=== PATIENT | female | born 1975 | race Caucasian/White ===

== ENCOUNTER 2018-04-18 20:01 | Emergency (ER) | payer BC ==
[2018-04-18 20:31] VITALS: BP 133/88; PULSE 85; RESP 18; TEMP 98.7
[2018-04-18] MEDS ORDERED: SODIUM CHLORIDE 0.9% 1,000 ML BAG ONE (23:00)
[2018-04-18 23:35] LABS: Basophils % (A) 1 %; Eosinophils # (A) 0.3 k/uL (0-0.7); Eosinophils % (A) 4 %; HCT 42.4 % (34.0-46.0); HGB 13.9 gm/dL (11.4-16.0); Lymphocytes # (A) 2.4 k/uL (1.0-4.8); Lymphocytes % (A) 34 %; MCH 28.4 pg (25.0-35.0); MCHC 32.9 g/dL (31.0-37.0); MCV 86.3 fL (80.0-100.0); Mean Platelet Volume 6.7; Monocytes # (A) 0.4 k/uL (0-1.0); Monocytes % (A) 6 %; Neutrophils # (A) 3.8 k/uL (1.3-7.7); Neutrophils % (A) 53 %; Platelet Count 274 k/uL (150-450); RBC 4.91 m/uL (3.80-5.40); RDW 13.3 % (11.5-15.5); WBC 7.1 k/uL (3.8-10.6)
--- NOTE | 2018-04-18 23:39 | CT ---
EXAMINATION TYPE: CT abdomen pelvis wo con DATE OF EXAM: 04/18/2018 COMPARISON: 01/11/2013 HISTORY: left flank pain CT DLP: 1228.4 mGycm Automated exposure control for dose reduction was used. TECHNIQUE: Helical acquisition of images was performed from the lung bases through the pelvis. FINDINGS: Lung bases are clear. There is no pleural effusion. Heart size is normal. There is no pericardial eff usion. There are surgical clips along the stomach from bariatric surgery. There is small hiatal herni a. Spleen appears normal. There is accessory spleen noted. There is no evidence of pancreatic mass. G allbladder appears normal. Liver shows no focal defect. Bile ducts are not dilated. There is no adrenal mass. Kidneys have normal size and contour. There is no hydronephrosis. There is ventral hernia that contains omental fat. This measures 4.5 x 3 cm. There is no retroperitoneal adenopathy. Ureters are not dilated. Bladder distends smoothly. There is no evidence of a pelvic mass. There is no inguinal hernia. I see no intestinal wall thickening. There are no dilated loops. Appendix is not definitely seen. There is no sign of a thickened appendix. The re is no evidence of free air. The bony structures are intact. There is no compression fracture. Bony pelvis is intact. There is no mesenteric edema or adenopathy. IMPRESSION: PREVIOUS SURGERY. NO EVIDENCE OF RENAL STONE OR OBSTRUCTION. NO SIGN OF ACUTE ABDOMEN AND PELVIS. THE RE IS VENTRAL HERNIA ABOVE THE UMBILICUS THAT CONTAINS OMENTAL FAT. THERE IS CLEARING OF THE LEFT-NATE ED HYDRONEPHROSIS AND RENAL CALCULUS COMPARED TO OLD EXAM. VENTRAL HERNIA IS INCREASED COMPARED TO OL D EXAM.
[2018-04-18 23:44] LABS: ALT 37 U/L (9-52); AST 30 U/L (14-36); Albumin 4.3 g/dL (3.5-5.0); Alkaline Phosphatase 101 U/L (38-126); Anion Gap 11 mmol/L; Blood Urea Nitrogen 21 mg/dL (7-17); Calcium 9.5 mg/dL (8.4-10.2); Carbon Dioxide 24 mmol/L (22-30); Chloride 104 mmol/L (98-107); Glucose 85 mg/dL (74-99); Lipase 109 U/L (23-300); Magnesium 1.8 mg/dL (1.6-2.3); Phosphorus 5.1 mg/dL (2.5-4.5); Potassium 4.6 mmol/L (3.5-5.1); Sodium 139 mmol/L (137-145); Total Bilirubin 0.2 mg/dL (0.2-1.3); Total Protein 7.4 g/dL (6.3-8.2)
[2018-04-19 00:46] LABS: Appearance,Urine Clear (Clear); Bacteria,Urine Moderate /hpf; Bilirubin,Urine Negative (Negative); Blood,Urine Negative (Negative); Color,Urine Yellow; Glucose,Urine (UA) Negative (Negative); Ketones,Urine Negative (Negative); Leukocyte Esterase,Urine Small (Negative); Mucus,Urine Rare /hpf; Nitrite,Urine Positive (Negative); PH, Urine 5.5 (5.0-8.0); Protein,Urine Negative (Negative); RBC,Urine 1 /hpf (0-5); Specific Gravity,Urine 1.018 (1.001-1.035); Squamous Epithelial Cell,Urine 3 /hpf (0-4); Urobilinogen,Urine <2.0 mg/dL (<2.0); WBC,Urine 6 /hpf (0-5)
== END 2018-04-19 01:35 | disposition home or self-care (01) ==
LOC: EC 20:01
DX: R10.9 Unspecified abdominal pain (principal)
CPT/HCPCS: 36415; 74176; 80053; 81001; 83690; 83735; 84100; 85025; 87077; 87086; 87186; 96361; 96372; 96374; 99284

== ENCOUNTER 2018-05-28 09:08 | Emergency (ER) | payer BC ==
[2018-05-28 09:12] VITALS: BP 129/83; RESP 18; TEMP 98.8
[2018-05-28] MEDS ORDERED: IPRATROPIUM-ALBUTEROL 3 ML NEB INHALATION STA (09:18)
--- NOTE | 2018-05-28 09:20 | ED ---
URI HPI - General Chief Complaint: Upper Respiratory Infection Stated Complaint: Cough/sob Time Seen by Provider: 05/28/18 09:14 Source: patient, RN notes reviewed Mode of arrival: ambulatory Limitations: no limitations - History of Present Illness Initial Comments: 42-year-old female presents emergency Department chief complaint cough congestion for the last 9 days. Patient states it started just in her sinuses but states that she has now productive cough. Patient states she was smoker 18 years ago. Denies any history of asthma or COPD. Denies any current fever but she's had on-and-off fevers throughout her illness. Patient did have multiple sick contacts at home that are now BETTER. She has tried [id number] decongestants that has not been helping. Patient states she has left-sided facial pressure and pain. She also states her ears feel plugged. Patient denies sore throat, difficulty swallowing. - Related Data Previous Rx's Medication Instructions Recorded Albuterol Sulfate [Proair Hfa] 1 - 2 puff INHALATION Q4HR PRN #1 05/28/18 inhaler Amoxicillin/Potassium Clav 1 tab PO Q12HR #20 tab 05/28/18 [Augmentin 875-125 Tablet] predniSONE 50 mg PO DAILY #5 tab 05/28/18 Allergies Allergy/AdvReac Type Severity Reaction Status Date / Time No Known Allergies Allergy Verified 05/28/18 09:27 Review of Systems ROS Statement: Those systems with pertinent positive or pertinent negative responses have been documented in the HPI. ROS Other: All systems not noted in ROS Statement are negative. Past Medical History Additional Past Medical History / Comment(s): Kidney stones History of Any Multi-Drug Resistant Organisms: None Reported Past Surgical History: Bariatric Surgery, Hysterectomy Additional Past Surgical History / Comment(s): Gastric sleeve, trigger finger, carpal tunnel Past Psychological History: Depression Smoking Status: Former smoker Past Alcohol Use History: Occasional Past Drug Use History: None Reported General Exam Limitations: no limitations General appearance: alert, in no apparent distress Head exam: Present: atraumatic, normocephalic, normal inspection Eye exam: Present: normal appearance, PERRL, EOMI. Absent: scleral icterus, conjunctival injection, periorbital swelling ENT exam: Present: mucous membranes moist, TM's normal bilaterally, normal external ear exam, other (Left maxillary and frontal sinus tenderness). Absent : normal exam, normal oropharynx (Postnasal drainage) Neck exam: Present: normal inspection, full ROM. Absent: tenderness, meningismus, lymphadenopathy Respiratory exam: Present: wheezes, rhonchi. Absent: normal lung sounds bilaterally, respiratory distress, rales, stridor Cardiovascular Exam: Present: regular rate, normal rhythm, normal heart sounds. Absent: systolic murmur, diastolic murmur, rubs, gallop, clicks Neurological exam: Present: alert, oriented X3, CN II-XII intact Skin exam: Present: warm, dry, intact, normal color. Absent: rash Course Vital Signs 05/28/18 09:09 Temperature 98.8 F Pulse Rate 94 Respiratory 18 Rate Blood Pressure 129/83 O2 Sat by Pulse 99 Oximetry Medical Decision Making - Medical Decision Making 42-year-old female presented for cough and congestion. Patient did have a chest x-ray which shows no acute abnormality. Patient has acute sinusitis/ bronchitis. Will be treated with Augmentin for sinusitis and prednisone for her acute bronchitis. Patient also given pro-air inhaler. She'll follow-up with her PCP return for any worsening symptoms. Disposition Clinical Impression: Bronchitis, Sinusitis Disposition: HOME SELF-CARE Condition: Stable Instructions (If sedation given, give patient instructions): Sinusitis (ED) Additional Instructions: Please return to the Emergency Department if symptoms worsen or any other concerns. Prescriptions: Albuterol Sulfate [Proair Hfa] 1 - 2 puff INHALATION Q4HR PRN #1 inhaler PRN Reason: difficulty in breathing Amoxicillin/Potassium Clav [Augmentin 875-125 Tablet] 1 tab PO Q12HR #20 tab predniSONE 50 mg PO DAILY #5 tab Is patient prescribed a controlled substance at d/c from ED?: No Referrals: None,Stated [Primary Care Provider] - 1-2 days Time of Disposition: 09:33
--- NOTE | 2018-05-28 09:29 | XR ---
EXAMINATION TYPE: XR chest 2V DATE OF EXAM: 05/28/2018 COMPARISON: Chest x-ray November 17, 2010 HISTORY: Cough congestion and fever for 9 days. TECHNIQUE: Frontal and lateral views of the chest are obtained. FINDINGS: There is no focal air space opacity, pleural effusion, or pneumothorax seen. The cardiac silhouette size is within normal limits. The osseous structures are intact. IMPRESSION: No suspicious acute pulmonary process. No significant change from prior.
[2018-05-28 09:59] VITALS: PULSE 84
== END 2018-05-28 10:15 | disposition home or self-care (01) ==
LOC: EC 09:08
DX: J20.9 Acute bronchitis, unspecified (principal); J01.90 Acute sinusitis, unspecified; Z87.891 Personal history of nicotine dependence
CPT/HCPCS: 71046; 99283

== ENCOUNTER 2019-10-12 14:24 | Emergency (ER) | payer BC ==
[2019-10-12 14:34] VITALS: TEMP 97.9
--- NOTE | 2019-10-12 14:43 | ED ---
Abdominal Pain HPI - General Chief Complaint: Abdominal Pain Stated Complaint: Kidney stone Time Seen by Provider: 10/12/19 14:35 Source: patient Mode of arrival: ambulatory Limitations: no limitations - History of Present Illness Initial Comments: Patient is a 43-year-old female with history of kidney stones presenting to emergency Department with a chief complaint of a kidney stone. Patient reports there was not set of left-sided back and flank pain that started early this morning. States the pain is now radiating to the suprapubic region. States this feels like her typical kidney stone. States she did not take any medication to alleviate the symptoms. Denies any urinary or vaginal symptoms. Denies any hematuria, hematochezia or melena. Denies any night sweats or Chills. Denies any chest pain or shortness of breath. - Related Data Previous Rx's Medication Instructions Recorded Albuterol Sulfate [Proair Hfa] 1 - 2 puff INHALATION Q4HR PRN #1 05/28/18 inhaler Amoxicillin/Potassium Clav 1 tab PO Q12HR #20 tab 05/28/18 [Augmentin 875-125 Tablet] predniSONE 50 mg PO DAILY #5 tab 05/28/18 Ondansetron Odt [Zofran Odt] 4 mg PO Q8HR PRN #14 tab 10/12/19 Tamsulosin [Flomax] 0.4 mg PO DAILY #7 cap 10/12/19 Allergies Allergy/AdvReac Type Severity Reaction Status Date / Time sulfamethoxazole AdvReac Nausea & Verified 10/12/19 14:33 [From Bactrim] Vomiting trimethoprim [From Bactrim] AdvReac Nausea & Verified 10/12/19 14:33 Vomiting Review of Systems ROS Statement: Those systems with pertinent positive or pertinent negative responses have been documented in the HPI. ROS Other: All systems not noted in ROS Statement are negative. Past Medical History Additional Past Medical History / Comment(s): Kidney stones, History of Any Multi-Drug Resistant Organisms: None Reported Past Surgical History: Bariatric Surgery, Hysterectomy Additional Past Surgical History / Comment(s): Gastric sleeve, trigger finger, carpal tunnel, lithotripsy, Past Psychological History: Depression Smoking Status: Former smoker Past Alcohol Use History: Daily Past Drug Use History: None Reported General Exam Limitations: no limitations General appearance: alert, in no apparent distress, obese Head exam: Present: atraumatic, normocephalic, normal inspection Eye exam: Present: normal appearance, PERRL, EOMI Pupils: Present: normal accommodation ENT exam: Present: normal exam, normal oropharynx, mucous membranes moist Neck exam: Present: normal inspection, full ROM Respiratory exam: Present: normal lung sounds bilaterally. Absent: respiratory distress, wheezes, rales Cardiovascular Exam: Present: regular rate, normal rhythm, normal heart sounds GI/Abdominal exam: Present: soft. Absent: distended, tenderness, guarding Extremities exam: Present: normal inspection, full ROM Back exam: Present: normal inspection, full ROM, CVA tenderness (L). Absent: muscle spasm Neurological exam: Present: alert, oriented X3 Psychiatric exam: Present: normal affect, normal mood Skin exam: Present: warm, dry, intact, normal color Course Vital Signs 10/12/19 10/12/19 10/12/19 14:30 14:34 16:04 Temperature 97.9 F Pulse Rate 93 85 Respiratory 18 20 20 Rate Blood Pressure 143/88 163/99 O2 Sat by Pulse 99 98 Oximetry Medical Decision Making - Medical Decision Making Patient is a 43-year-old female with history of kidney stones presenting to the emergency department with a chief complaint of a kidney stone. Exam reveals left CVA tenderness. UA shows positive red blood cells and moderate blood in the urine. Patient states this feels exactly like her previous stone. Patient given analgesia and a deep and will be discharged with a Tylenol 3 starter pack. Advised about the possible side effects of medication. She will be discharged with Zofran and Flomax. Advised to follow-up with urologist. On reevaluation patient reports the symptoms improved and feels comfortable going home. Return parameters thoroughly discussed the patient was understanding and agreeable. Case discussed with physician. - Lab Data Lab Results 10/12/19 Range/Units 15:00 Urine Color Yellow Urine Appearance Turbid H (Clear) Urine pH 5.0 (5.0-8.0) Ur Specific [place] 1.022 (1.001-1.035) Urine Protein Negative (Negative) Urine Glucose (UA) Negative (Negative) Urine Ketones Negative (Negative) Urine Blood Moderate H (Negative) Urine Nitrite Negative (Negative) Urine Bilirubin Negative (Negative) Urine Urobilinogen <2.0 (<2.0) mg/dL Ur Leukocyte Esterase Negative (Negative) Urine RBC 33 H (0-5) /hpf Urine WBC 1 (0-5) /hpf Ur Squamous Epith Cells 2 (0-4) /hpf Uric Acid Crystals Many H (None) /hpf Hyaline Casts 1 (0-2) /lpf Urine Mucus Rare H (None) /hpf Disposition Clinical Impression: Renal stone Disposition: HOME SELF-CARE Condition: Stable Instructions (If sedation given, give patient instructions): Kidney Stones (ED) Additional Instructions: Follow-up with urology. Return to emergency department if symptoms worsen. Take prescribed medication as directed. Prescriptions: Tamsulosin [Flomax] 0.4 mg PO DAILY #7 cap Ondansetron Odt [Zofran Odt] 4 mg PO Q8HR PRN #14 tab PRN Reason: Nausea Is patient prescribed a controlled substance at d/c from ED?: No Referrals: Celsa Salcedo MD [Primary Care Provider] - 1-2 days Flaquito Baptiste MD [STAFF PHYSICIAN] - 1-2 days Time of Disposition: 15:29
[2019-10-12] MEDS ORDERED: KETOROLAC 30 MG/ML 1 ML VIAL IVP STA (14:57)
[2019-10-12] MEDS ORDERED: ONDANSETRON 4 MG/2 ML VIAL IVP STA (14:57)
[2019-10-12 15:16] LABS: Appearance,Urine Turbid (Clear); Bilirubin,Urine Negative (Negative); Blood,Urine Moderate (Negative); Color,Urine Yellow; Glucose,Urine (UA) Negative (Negative); Hyaline Casts,Urine 1 /lpf (0-2); Ketones,Urine Negative (Negative); Leukocyte Esterase,Urine Negative (Negative); Mucus,Urine Rare /hpf; Nitrite,Urine Negative (Negative); Protein,Urine Negative (Negative); RBC,Urine 33 /hpf (0-5); Specific Gravity,Urine 1.022 (1.001-1.035); Squamous Epithelial Cell,Urine 2 /hpf (0-4); Uric Acid Crystals,Urine Many /hpf; Urobilinogen,Urine <2.0 mg/dL (<2.0); WBC,Urine 1 /hpf (0-5)
[2019-10-12] MEDS ORDERED: ACET/COD 300 MG/30 MG STARTER PACK 6 TAB BTL PO STA (15:18)
[2019-10-12 15:52] VITALS: RESP 20
--- NOTE | 2019-10-12 15:54 | XR ---
EXAMINATION TYPE: XR KUB DATE OF EXAM: 10/12/2019 COMPARISON: 01/11/2013 INDICATION: Renal stone left flank pain TECHNIQUE: Single view abdomen FINDINGS: There is a normal bowel gas pattern. Psoas margins are normal. No organomegaly is present. Gastric surgery surgical clips are evident. No left renal or ureteral stone is identified. IMPRESSION: 1. Unremarkable Abdomen
[2019-10-12] MEDS ORDERED: MORPHINE SULFATE 4 MG/ML SYRINGE IVP STA (15:56)
[2019-10-12 16:06] VITALS: BP 163/99; PULSE 85
== END 2019-10-12 16:08 | disposition home or self-care (01) ==
LOC: EC 14:24
DX: N20.0 Calculus of kidney (principal); Z87.891 Personal history of nicotine dependence; Z88.2 Allergy status to sulfonamides; Z88.1 Allergy status to other antibiotic agents; Z98.890 Other specified postprocedural states; Z98.84 Bariatric surgery status
CPT/HCPCS: 81001; 74018; 99284; 96374; 96375 ×2; J2270; J2405; J1885

== ENCOUNTER → 2019-10-14 | Outpatient (CLI) | payer BC ==
--- NOTE | 2019-10-14 11:18 | CT ---
EXAMINATION TYPE: CT abdomen pelvis wo con DATE OF EXAM: 10/14/2019 COMPARISON: 04/18/2018 HISTORY: Calculus of ureter CT DLP: 1166 mGycm Automated exposure control for dose reduction was used. TECHNIQUE: Helical acquisition of images was performed from the lung bases through the pelvis. FINDINGS: LUNG BASES: No significant abnormality is appreciated. LIVER/GB: No significant abnormality is appreciated. PANCREAS: No significant abnormality is seen. SPLEEN: Accessory spleen noted.. ADRENALS: No significant abnormality is seen. KIDNEYS: Left kidney: There is moderate left hydronephrosis. There are at least 5 less than 5 mm lower pole le ft renal calculi. There is a 3 mm in diameter distal left ureteral calculus at the level of the SI janine int.. ADENOPATHY: None visualized. OSSEOUS STRUCTURES: Hypertrophic and degenerative changes spine. BOWEL: Bowel gas pattern nonspecific. There is evidence of previous gastric surgery.. OTHER: There is a ventral hernia containing peritoneal. Uterus not seen correlate for previous surger y. IMPRESSION: 1. Moderate left hydronephrosis with nephrolithiasis and obstructing 3 mm in diameter left mid to dis arvind ureteral stone. 2. Stable anterior abdominal wall fat-containing hernia.
== END | disposition home or self-care (01) ==
LOC: RADCTMAIN 10:18
PROVIDERS: ATTEND Urology
DX: N13.2 Hydronephrosis with renal and ureteral calculous obstruction (principal); K46.9 Unspecified abdominal hernia without obstruction or gangrene
CPT/HCPCS: 74176

== ENCOUNTER → 2020-08-19 | Outpatient (CLI) | payer BC ==
--- NOTE | 2020-08-19 09:40 | MM ---
Reason for exam: screening (asymptomatic). Baseline mammogram. History: Patient is postmenopausal. Family history of breast cancer in maternal aunt at age 60. Took hormonal contraceptives for 4 years. Physical Findings: Nurse did not find any significant physical abnormalities on exam. MG Screening Mammo w CAD Bilateral CC, MLO, and XCCL view(s) were taken. CV view(s) were taken of the right breast. There are scattered fibroglandular densities. There is no discrete abnormality. These results were verbally communicated with the patient and result sheet given to the patient on 08/19/20. ASSESSMENT: Negative, BI-RAD 1 RECOMMENDATION: Routine screening mammogram of both breasts in 1 year.
== END | disposition home or self-care (01) ==
LOC: RADMAMWWP 08:04
PROVIDERS: ATTEND Family Medicine
DX: Z12.31 Encounter for screening mammogram for malignant neoplasm of breast (principal); Z80.3 Family history of malignant neoplasm of breast
CPT/HCPCS: 77067

== ENCOUNTER 2021-01-11 06:48 | Inpatient (IN) | payer BC ==
[2021-01-11] MEDS ORDERED: IBUPROFEN 600 MG TAB PO STA (07:12)
[2021-01-11] MEDS ORDERED: ACETAMINOPHEN TAB 500 MG TAB PO STA (07:12)
[2021-01-11] MEDS ORDERED: ONDANSETRON 4 MG/2 ML VIAL IVP STA (07:13)
[2021-01-11] MEDS ORDERED: MORPHINE SULFATE 4 MG/ML SYRINGE IVP STA (07:13)
[2021-01-11] MEDS ORDERED: SODIUM CHLORIDE 0.9% 2,000 ML IV STA (07:13)
--- NOTE | 2021-01-11 07:18 | ED ---
General Adult HPI - General Chief complaint: Abdominal Pain Stated complaint: Abd Pain Time Seen by Provider: 01/11/21 06:56 Source: patient Mode of arrival: ambulatory Limitations: no limitations - History of Present Illness Initial comments: 45-year-old female with a past medical history of gastric sleeve, kidney stones, pyelonephritis, hernia [address] Adan Wesley to the emergency room for left sided abdominal and flank pain. Patient states this started after her surgery about worsened significantly last night. Patient states she feels she developed a fever last night and had chills. On repeat temperature here she is 101.4. Patient states it feels like a kidney stone that she has had in the past. States she has had infections on top of systems the past. Patient reports she has nausea as well. Patient denies cough congestion sore throat.Patient has no other complaints at this time including shortness of breath, chest pain, vomiting, headache, or visual changes. - Related Data Home Medications Medication Instructions Recorded Confirmed Naproxen 500 mg PO BID 01/11/21 01/11/21 Venlafaxine HCl ER [Effexor Xr] 225 mg PO DAILY 01/11/21 01/11/21 hydroCHLOROthiazide [Hydrodiuril] 25 mg PO DAILY 01/11/21 01/11/21 metFORMIN HCL ER [Glucophage XR] 1,000 mg PO DAILY 01/11/21 01/11/21 Allergies Allergy/AdvReac Type Severity Reaction Status Date / Time sulfamethoxazole AdvReac Nausea & Verified 01/11/21 09:15 [From Bactrim] Vomiting trimethoprim [From Bactrim] AdvReac Nausea & Verified 01/11/21 09:15 Vomiting Review of Systems ROS Statement: Those systems with pertinent positive or pertinent negative responses have been documented in the HPI. ROS Other: All systems not noted in ROS Statement are negative. Past Medical History Additional Past Medical History / Comment(s): Kidney stones, History of Any Multi-Drug Resistant Organisms: None Reported Past Surgical History: Bariatric Surgery, Hysterectomy Additional Past Surgical History / Comment(s): Gastric sleeve, trigger finger, carpal tunnel, lithotripsy, Hernia Past Psychological History: Depression Smoking Status: Never smoker Past Alcohol Use History: Daily Past Drug Use History: None Reported General Exam Limitations: no limitations General appearance: alert, in no apparent distress Head exam: Present: atraumatic Eye exam: Present: normal appearance, PERRL, EOMI. Absent: scleral icterus, conjunctival injection ENT exam: Present: normal exam, mucous membranes moist Neck exam: Present: normal inspection, full ROM. Absent: tenderness Respiratory exam: Present: normal lung sounds bilaterally. Absent: respiratory distress, wheezes Cardiovascular Exam: Present: regular rate, normal rhythm, normal heart sounds GI/Abdominal exam: Present: soft, tenderness (Left-sided abdominal tenderness), normal bowel sounds. Absent: distended Neurological exam: Present: alert Course Vital Signs 01/11/21 01/11/21 01/11/21 06:53 07:11 09:28 Temperature 99 F 101.4 F H 99.4 F Pulse Rate 118 H 100 Respiratory 20 18 Rate Blood Pressure 120/70 119/67 O2 Sat by Pulse 97 98 Oximetry Medical Decision Making - Medical Decision Making Patient was given greater than 30 mL/kg based on an ideal body weight of 55 kilo grams for her height. She presents febrile and tachycardic however her rate did improve to 104 after Tylenol. CBC is unremarkable however CMP does show a lactic acid of 3.3. Uri nalysis was obtained which did show positive nitrite and many bacteria. IV antibiotic ordered within [address] sepsis diagnosis[address] abdomen and pelvis did show a 6 mm left ureteral stone. There is also a fluid collection however this is favored as postsurgical seroma and hematoma. Dissection fever is coming from septic stone. Consulted with Dr. gardiner who will consult on patient, requests medicine admit. Request starting patient on gentamicin in addition to the Rocephin given. Case discussed with Dr. pope who does accept the admission, requests infectious disease consult regarding antibiotic therapy. We will also consult Dr. Arellano given as was her surgeon and she does have a fluid collection and a fever however again feel this is more related to septic stone. - Lab Data Result diagrams: 01/11/21 07:28 01/11/21 07:28 Lab Results 01/11/21 01/11/21 01/11/21 Range/Units 07:28 07:28 07:28 WBC 8.9 (3.8-10.6) k/uL RBC 4.63 (3.80-5.40) m/uL Hgb 14.3 (11.4-16.0) gm/dL Hct 41.7 (34.0-46.0) % MCV 90.0 (80.0-100.0) fL MCH 30.9 (25.0-35.0) pg MCHC 34.3 (31.0-37.0) g/dL RDW 13.4 (11.5-15.5) % Plt Count 220 (150-450) k/uL MPV 6.9 Neutrophils % 93 % Lymphocytes % 5 % Monocytes % 2 % Eosinophils % 0 % Basophils % 0 % Neutrophils # 8.2 H (1.3-7.7) k/uL Lymphocytes # 0.5 L (1.0-4.8) k/uL Monocytes # 0.1 (0-1.0) k/uL Eosinophils # 0.0 (0-0.7) k/uL Basophils # 0.0 (0-0.2) k/uL Sodium 137 (137-145) mmol/L Potassium 3.5 (3.5-5.1) mmol/L Chloride 103 (98-107) mmol/L Carbon Dioxide 24 (22-30) mmol/L Anion Gap 10 mmol/L BUN 27 H (7-17) mg/dL Creatinine 0.88 (0.52-1.04) mg/dL Est GFR (CKD-EPI)AfAm >90 (>60 ml/min/1.73 sqM) Est GFR (CKD-EPI)NonAf 80 (>60 ml/min/1.73 sqM) Glucose 133 H (74-99) mg/dL Plasma Lactic Acid Charles (0.7-2.0) mmol/L Calcium 9.4 (8.4-10.2) mg/dL Total Bilirubin 0.5 (0.2-1.3) mg/dL AST 48 H (14-36) U/L ALT 40 H (4-34) U/L Alkaline Phosphatase 111 (38-126) U/L Total Protein 6.7 (6.3-8.2) g/dL Albumin 3.7 (3.5-5.0) g/dL Urine Color Yellow Urine Appearance Cloudy H (Clear) Urine pH 6.0 (5.0-8.0) Ur Specific [place] 1.031 (1.001-1.035) Urine Protein 1+ H (Negative) Urine Glucose (UA) Negative (Negative) Urine Ketones Trace H (Negative) Urine Blood Negative (Negative) Urine Nitrite Positive H (Negative) Urine Bilirubin Negative (Negative) Urine Urobilinogen 2.0 (<2.0) mg/dL Ur Leukocyte Esterase Small H (Negative) Urine RBC 2 (0-5) /hpf Urine WBC 3 (0-5) /hpf Ur Squamous Epith Cells 5 H (0-4) /hpf Urine Bacteria Many H (None) /hpf Urine Mucus Occasional H (None) /hpf Coronavirus (PCR) (Not Detectd) 01/11/21 01/11/21 Range/Units 07:28 07:28 WBC (3.8-10.6) k/uL RBC (3.80-5.40) m/uL Hgb (11.4-16.0) gm/dL Hct (34.0-46.0) % MCV (80.0-100.0) fL MCH (25.0-35.0) pg MCHC (31.0-37.0) g/dL RDW (11.5-15.5) % Plt Count (150-450) k/uL MPV Neutrophils % % Lymphocytes % % Monocytes % % Eosinophils % % Basophils % % Neutrophils # (1.3-7.7) k/uL Lymphocytes # (1.0-4.8) k/uL Monocytes # (0-1.0) k/uL Eosinophils # (0-0.7) k/uL Basophils # (0-0.2) k/uL Sodium (137-145) mmol/L Potassium (3.5-5.1) mmol/L Chloride (98-107) mmol/L Carbon Dioxide (22-30) mmol/L Anion Gap mmol/L BUN (7-17) mg/dL Creatinine (0.52-1.04) mg/dL Est GFR (CKD-EPI)AfAm (>60 ml/min/1.73 sqM) Est GFR (CKD-EPI)NonAf (>60 ml/min/1.73 sqM) Glucose (74-99) mg/dL Plasma Lactic Acid Charles 3.3 H* (0.7-2.0) mmol/L Calcium (8.4-10.2) mg/dL Total Bilirubin (0.2-1.3) mg/dL AST (14-36) U/L ALT (4-34) U/L Alkaline Phosphatase (38-126) U/L Total Protein (6.3-8.2) g/dL Albumin (3.5-5.0) g/dL Urine Color Urine Appearance (Clear) Urine pH (5.0-8.0) Ur Specific [place] (1.001-1.035) Urine Protein (Negative) Urine Glucose (UA) (Negative) Urine Ketones (Negative) Urine Blood (Negative) Urine Nitrite (Negative) Urine Bilirubin (Negative) Urine Urobilinogen (<2.0) mg/dL Ur Leukocyte Esterase (Negative) Urine RBC (0-5) /hpf Urine WBC (0-5) /hpf Ur Squamous Epith Cells (0-4) /hpf Urine Bacteria (None) /hpf Urine Mucus (None) /hpf Coronavirus (PCR) Not Detected (Not Detectd) Disposition Clinical Impression: Kidney stone, Pyelonephritis Disposition: ADMITTED IP TO THIS HOSP Is patient prescribed a controlled substance at d/c from ED?: No Referrals: Chon Baca DO [Primary Care Provider] - 1-2 days Time of Disposition: 09:49
[2021-01-11 07:51] LABS: Appearance,Urine Cloudy (Clear); Bacteria,Urine Many /hpf; Bilirubin,Urine Negative (Negative); Blood,Urine Negative (Negative); Color,Urine Yellow; Glucose,Urine (UA) Negative (Negative); Ketones,Urine Trace (Negative); Leukocyte Esterase,Urine Small (Negative); Mucus,Urine Occasional /hpf; Nitrite,Urine Positive (Negative); Protein,Urine 1+ (Negative); RBC,Urine 2 /hpf (0-5); Specific Gravity,Urine 1.031 (1.001-1.035); Squamous Epithelial Cell,Urine 5 /hpf (0-4); WBC,Urine 3 /hpf (0-5)
[2021-01-11 07:54] LABS: ALT 40 U/L (4-34); AST 48 U/L (14-36); African American GFR (CKD) >90 (>60 ml/min/1.73 sqM); Albumin 3.7 g/dL (3.5-5.0); Alkaline Phosphatase 111 U/L (38-126); Anion Gap 10 mmol/L; Blood Urea Nitrogen 27 mg/dL (7-17); Calcium 9.4 mg/dL (8.4-10.2); Carbon Dioxide 24 mmol/L (22-30); Chloride 103 mmol/L (98-107); Glucose 133 mg/dL (74-99); Non-African American GFR(CKD) 80 (>60 ml/min/1.73 sqM); Potassium 3.5 mmol/L (3.5-5.1); Sodium 137 mmol/L (137-145); Total Bilirubin 0.5 mg/dL (0.2-1.3); Total Protein 6.7 g/dL (6.3-8.2)
[2021-01-11 08:20] LABS: Basophils % (A) 0 %; Eosinophils % (A) 0 %; HCT 41.7 % (34.0-46.0); HGB 14.3 gm/dL (11.4-16.0); Lymphocytes # (A) 0.5 k/uL (1.0-4.8); Lymphocytes % (A) 5 %; MCH 30.9 pg (25.0-35.0); MCHC 34.3 g/dL (31.0-37.0); Mean Platelet Volume 6.9; Monocytes # (A) 0.1 k/uL (0-1.0); Monocytes % (A) 2 %; Neutrophils # (A) 8.2 k/uL (1.3-7.7); Neutrophils % (A) 93 %; Platelet Count 220 k/uL (150-450); RBC 4.63 m/uL (3.80-5.40); RDW 13.4 % (11.5-15.5); WBC 8.9 k/uL (3.8-10.6)
--- NOTE | 2021-01-11 08:52 | CT ---
EXAMINATION TYPE: CT abdomen pelvis w con DATE OF EXAM: 01/11/2021 HISTORY: Left flank pain with history of renal stones, recent right side hernia repair CT DLP: 2265.8mGycm Automated Exposure Control for Dose Reduction was Utilized. CONTRAST: CT scan of the abdomen and pelvis is performed without oral but with IV Contrast, patient injected wi th 100 mL of Isovue 300. COMPARISON: CT abdomen and pelvis October 14, 2019 FINDINGS: LUNG BASES: Slightly elevated left hemidiaphragm with mild left basilar linear scarring and/or atelec tasis. LIVER/GB: Liver size upper limits of normal and heterogeneously hypodense consistent with mild diffus e fatty infiltration. Gallbladder has distended margins without surrounding inflammatory change. No b iliary dilatation. PANCREAS: No significant abnormality is seen. SPLEEN: Small splenule inferior splenic hilum axial image 21 redemonstrated. ADRENALS: No significant abnormality is seen. KIDNEYS: Better visualized mid to lower pole left renal calculi with approximately 10-12 calculi maritza uring up to 5 mm in size. There is persistent [id number] left-sided hydronephrosis due to new obstructing 5 to 6 mm calculus proximal left ureter coronal image 68. No right-sided nephrolithiasis . Satisfactory uptake and excretion right kidney without hydronephrosis. No intraluminal calculus in the poorly distended bladder. BOWEL: Prior gastric sleeve surgical changes redemonstrated. No suspicious small or large bowel dilat ation. UTERUS/ADNEXA: Uterus surgically absent. LYMPH NODES: No greater than 1cm abdominal or pelvic lymph nodes are appreciated. OSSEOUS STRUCTURES: No significant abnormality is seen. OTHER: The anterior abdominal wall there is a thin-walled lobulated fluid collection with nondependen t air, also more anterior hypodensity may reflect blood product. This measures approximately 10.4 cm transversely by 2.9 cm AP diameter axial image 48 x 7.4 cm craniocaudal diameter coronal image 14. Mi ld adjacent fat stranding. This is just above the umbilicus and just centered right of midline corres ponding to the level of prior fat-containing ventral wall hernia. Favor postsurgical seroma and small blood component or hematoma. IMPRESSION: [id number] left-sided hydronephrosis with delayed excretion secondary to new 5 to 6 mm proximal left ureter calculus.
[2021-01-11] MEDS ORDERED: cefTRIAXone IN SWFI 1,000 MG/10 ML SYRINGE IVP STA (09:06)
[2021-01-11] MEDS ORDERED: HYDROmorphone 0.5 MG/0.5 ML SYRINGE IVP STA (09:39)
[2021-01-11] MEDS ORDERED: HYDROmorphone 0.5 MG/0.5 ML SYRINGE IVP PRN (09:41)
[2021-01-11] MEDS ORDERED: MORPHINE SULFATE 4 MG/ML SYRINGE IV PRN (09:41)
[2021-01-11] MEDS ORDERED: NALOXONE 0.4 MG/ML 1 ML VIAL IV PRN (09:41)
[2021-01-11] MEDS ORDERED: GENTAMICIN PER PHARMACY MISCELLANE SCH (09:45)
[2021-01-11] MEDS ORDERED: GENTAMICIN 360 MG in SODIUM CHLORIDE 0.9% 100 ML IVPB ONE (10:00)
[2021-01-11] MEDS: SODIUM CHLORIDE 0.9% 1,000 ML IV SCH ×2 (10:04→18:48)
[2021-01-11] MEDS: PIPERACILLIN-TAZOBACTAM 3.375 GM in SODIUM CHLORIDE 0.9% 100 ML IVPB SCH ×2 (12:10→20:53)
--- NOTE | 2021-01-11 12:34 | P.HPIM ---
History of Present Illness This is a pleasant 45 years old female with past medical history of hysterectomy, kidney stone and she follows up with Dr. Mireles many years ago, history of gastric sleeve surgery complicated by incisional hernia status post hernia repair done by Dr. fletcher last Sunday. Presents this time because of left abdominal pain with fever that started yesterday, pain is radiating from her left lower back into the left flank area, felt like sharp moderate to severe in the quantity about 10/10, currently is 7/10 with pain medication. She denies any dysuria or urgency but she notices she's been less than usual. She has kidney stone status post lithotripsy done with Dr. Mireles many years ago. Smoking or illicit drugs but she drinks alcohol leak or every day and could not specify all marked On admission she is febrile with 101.4. Restoril vitals are stable however she is tachycardic with heart rate 100-118. CBC is unremarkable as well as CBC and liver enzymes mildly elevated with AST 48 and ALT 40. Lactic acid is elevated at 3.3, and 3.0. Urinalysis is positive for nitrite. Coronavirus not detected. CT of the abdomen and pelvis with contrast: Moderate to severe left-sided hydronephrosis with delayed excretion secondary to 5-6 mm proximal left ureteral calculus Also there is some thin walled loculated fluid collection adjacent to her surgical wound favor postsurgical seroma with a small blood component or hematoma In the emergency room patient received 1 dose of Rocephin and gentamicin. Urologist has been contacted by ENT team. We are asked for infectious disease consult recommended Zosyn was started for the patient. Also she is on normal saline at 1 30 mL/h Review of Systems CONSTITUTIONAL: No fever, no malaise, no fatigue. HEENT: No recent visual problems or hearing problems. Denied any sore throat. CARDIOVASCULAR: No orthopnea, PND, no palpitations, no syncope. PULMONARY: No shortness of breath, no cough, no hemoptysis. GASTROINTESTINAL: No diarrhea, . Normoactive bowel sounds. NEUROLOGICAL: No headaches, no weakness, no numbness. HEMATOLOGICAL: Denies any bleeding or petechiae. GENITOURINARY: Denies any burning micturition, frequency, or urgency. MUSCULOSKELETAL/RHEUMATOLOGICAL: Denies any joint pain, swelling, or any muscle pain. ENDOCRINE: Denies any polyuria or polydipsia. Past Medical History Additional Past Medical History / Comment(s): Kidney stones, History of Any Multi-Drug Resistant Organisms: None Reported Past Surgical History: Bariatric Surgery, Hysterectomy Additional Past Surgical History / Comment(s): Gastric sleeve, trigger finger, carpal tunnel, lithotripsy, Hernia Additional Past Anesthesia/Blood Transfusion Reaction / Comment(s): PT STATES "I HAVE WOKEN UP BEFORE DURING SURGERY" Past Psychological History: Depression Smoking Status: Never smoker Past Alcohol Use History: Daily Past Drug Use History: None Reported - Past Family History Mother Family Medical History: Diabetes Mellitus, Hypertension Father Family Medical History: Hypertension Medications and Allergies Home Medications Medication Instructions Recorded Confirmed Type Naproxen 500 mg PO BID 01/11/21 01/11/21 History Venlafaxine HCl ER [Effexor Xr] 225 mg PO DAILY 01/11/21 01/11/21 History hydroCHLOROthiazide [Hydrodiuril] 25 mg PO DAILY 01/11/21 01/11/21 History metFORMIN HCL ER [Glucophage XR] 1,000 mg PO DAILY 01/11/21 01/11/21 History Allergies Allergy/AdvReac Type Severity Reaction Status Date / Time sulfamethoxazole AdvReac Nausea & Verified 01/11/21 12:12 [From Bactrim] Vomiting trimethoprim [From Bactrim] AdvReac Nausea & Verified 01/11/21 12:12 Vomiting Physical Exam Vitals: Vital Signs Temp Pulse Pulse Resp BP BP Pulse Ox 01/11/21 11:31 98.3 F 101 H 18 104/70 100 01/11/21 09:28 99.4 F 100 18 119/67 98 01/11/21 07:11 101.4 F H 01/11/21 06:53 99 F 118 H 20 120/70 97 Intake and Output 01/10/21 01/11/21 01/11/21 22:59 06:59 14:59 Other: Weight 108.862 kg 110.223 kg -GENERAL: The patient is alert and oriented x3, not in any acute distress. Obesity HEENT: Pupils are round and equally reacting to light. EOMI. No scleral icterus. No conjunctival pallor. Normocephalic, atraumatic. No pharyngeal erythema. No thyromegaly. CARDIOVASCULAR: S1 and S2 present. No murmurs, rubs, or gallops. PULMONARY: Chest is clear to auscultation, no wheezing or crackles. -ABDOMEN: Soft, left flank tenderness, mild left costovertebral angle tenderness, no rebound tenderness, nondistended, normoactive bowel sounds. No palpable organomegaly. surgical incision is closed and healing MUSCULOSKELETAL: No joint swelling or deformity. EXTREMITIES: No cyanosis, clubbing, or pedal edema. NEUROLOGICAL: Gross neurological examination did not reveal any focal deficits. SKIN: No rashes. No petechiae Results CBC & Chem 7: 01/11/21 07:28 01/11/21 07:28 Labs: Abnormal Lab Results - Last 24 Hours (Table) 01/11/21 01/11/21 01/11/21 Range/Units 07:28 07:28 07:28 Neutrophils # 8.2 H (1.3-7.7) k/uL Lymphocytes # 0.5 L (1.0-4.8) k/uL BUN 27 H (7-17) mg/dL Glucose 133 H (74-99) mg/dL Plasma Lactic Acid Charles (0.7-2.0) mmol/L AST 48 H (14-36) U/L ALT 40 H (4-34) U/L Urine Appearance Cloudy H (Clear) Urine Protein 1+ H (Negative) Urine Ketones Trace H (Negative) Urine Nitrite Positive H (Negative) Ur Leukocyte Esterase Small H (Negative) Ur Squamous Epith Cells 5 H (0-4) /hpf Urine Bacteria Many H (None) /hpf Urine Mucus Occasional H (None) /hpf 01/11/21 01/11/21 Range/Units 07:28 10:39 Neutrophils # (1.3-7.7) k/uL Lymphocytes # (1.0-4.8) k/uL BUN (7-17) mg/dL Glucose (74-99) mg/dL Plasma Lactic Acid Charles 3.3 H* 3.0 H* (0.7-2.0) mmol/L AST (14-36) U/L ALT (4-34) U/L Urine Appearance (Clear) Urine Protein (Negative) Urine Ketones (Negative) Urine Nitrite (Negative) Ur Leukocyte Esterase (Negative) Ur Squamous Epith Cells (0-4) /hpf Urine Bacteria (None) /hpf Urine Mucus (None) /hpf Assessment and Plan Assessment: Acute urinary tract infection with left sided hydronephrosis, sepsis with fever and tachycardia secondary to above mild to severe left-sided hydronephrosis secondary to 5-6 mm kidney stone on the proximal ureter recent history of incisional hernia repair Possible postsurgical hematoma versus seroma history of gastric sleeve surgery complicated with incisional hernia Morbid obesity with BMI of 44.4 Plan: this is a pleasant 45 years old female who presents with UTI, pyelonephritis and left hydronephrosis. Continue with Zosyn and normal saline. Follow-up urine culture Infectious Disease consult Urology team consult Labs and medication were reviewed.. Continue same treatment. Continue with symptomatic treatment. Resume home medication. Monitor lytes and vitals. DVT and GI prophylaxis. Further recommendations depends on the clinical course of the patient DVT prophylaxis: Subcutaneous heparin GI Prophylaxis: Pepcid
[2021-01-11] MEDS ORDERED: PROMETHAZINE 25 MG TAB PO PRN (12:56)
[2021-01-11] MEDS: HYDROmorphone 1 MG/ML 1 ML SYRINGE IVP PRN (13:13)
[2021-01-11] MEDS ORDERED: SODIUM CHLORIDE 0.9% 1,000 ML IV ONE ×2 (13:59→14:47)
[2021-01-11] MEDS ORDERED: ACETAMINOPHEN IV (For NPO) 1,000 MG in EMPTY BAG 1 BAG IVPB PRN (14:00)
[2021-01-11] MEDS ORDERED: ACETAMINOPHEN TAB 325 MG TAB PO PRN (14:01)
[2021-01-11 15:31] LABS: Glucose,Whole Blood 110 mg/dL (75-99)
[2021-01-11] MEDS ORDERED: LIDOCAINE 1% INJ 10MG/ML (20 ML MDV) ONE (16:10)
[2021-01-11] MEDS ORDERED: SUCCINYLCHOLINE CHLORIDE 100 MG/5 ML SYR IV ONE (16:10)
[2021-01-11] MEDS ORDERED: ETOMIDATE 2 MG/ML 10 ML VIAL ONE (16:10)
[2021-01-11] MEDS ORDERED: fentaNYL (PF) 50 MCG/ML 2 ML AMP ONE (16:10)
[2021-01-11] MEDS ORDERED: PHENYLEPHRINE-0.9% NACL SYG 1,000 MCG/10 ML SYRINGE ONE (16:10)
[2021-01-11] MEDS ORDERED: MIDAZOLAM 2 MG/2 ML VIAL ONE (16:10)
--- NOTE | 2021-01-11 16:13 | P.HPIHPCON ---
History of Present Illness H&P Date: 01/11/21 This is a 45 yo female with hx of 6 mm left sided proximal stone, causing severe hydronephrosis. She has hx of recurrent kidney stones. She underwent a recent incisional hernia repair by Dr Arellano last week on Sun. On presentation she was febrile at 101, her WBC was 8.9 and lactate was 3.3. Patient lactate improved to 3 with hydration. On presentation she was complaining of left flank pain with radiation to left lower abdomen. Consent for Procedure: I have explained the operation/procedure to the patient, including the risks, benefits, side effects, alternative therapies (including not receiving the proposed treatment or service), the likelihood of the patient achieving his/her goals, and potential recuperation problems for the procedure/sedation/analgesia, as well as any blood products, if indicated. I also explained to the patient the risks, benefits and side effects of the alternatives, as well as the risks related to not receiving the proposed procedure, care, treatment, or services. Past Medical History Additional Past Medical History / Comment(s): Kidney stones, History of Any Multi-Drug Resistant Organisms: None Reported Past Surgical History: Bariatric Surgery, Hysterectomy Additional Past Surgical History / Comment(s): Gastric sleeve, trigger finger, carpal tunnel, lithotripsy, Hernia Additional Past Anesthesia/Blood Transfusion Reaction / Comment(s): PT STATES "I HAVE WOKEN UP BEFORE DURING SURGERY" Past Psychological History: Depression Smoking Status: Never smoker Past Alcohol Use History: Daily Past Drug Use History: None Reported - Past Family History Mother Family Medical History: Diabetes Mellitus, Hypertension Father Family Medical History: Hypertension Medications and Allergies Home Medications Medication Instructions Recorded Confirmed Type Naproxen 500 mg PO BID 01/11/21 01/11/21 History Venlafaxine HCl ER [Effexor Xr] 225 mg PO DAILY 01/11/21 01/11/21 History hydroCHLOROthiazide [Hydrodiuril] 25 mg PO DAILY 01/11/21 01/11/21 History metFORMIN HCL ER [Glucophage XR] 1,000 mg PO DAILY 01/11/21 01/11/21 History Allergies Allergy/AdvReac Type Severity Reaction Status Date / Time sulfamethoxazole AdvReac Nausea & Verified 01/11/21 12:12 [From Bactrim] Vomiting trimethoprim [From Bactrim] AdvReac Nausea & Verified 01/11/21 12:12 Vomiting TAPE AdvReac Rash/Hives Uncoded 01/11/21 16:07 Surgical - Exam Vital Signs Temp Pulse Resp BP Pulse Ox 99 F 118 H 20 120/70 97 01/11/21 06:53 01/11/21 06:53 01/11/21 06:53 01/11/21 06:53 01/11/21 06:53 - General well developed, well nourished, moderate distress - Eyes PERRL, normal ocular movement - Respiratory increased respiratory effort normal expansion - Abdomen Abdomen: soft, non tender - Psychiatric oriented to time, oriented to person, oriented to place Results - Labs 01/11/21 07:28 01/11/21 07:28 Abnormal Lab Results - Last 24 Hours (Table) 01/11/21 01/11/21 01/11/21 Range/Units 07:28 07:28 07:28 Neutrophils # 8.2 H (1.3-7.7) k/uL Lymphocytes # 0.5 L (1.0-4.8) k/uL BUN 27 H (7-17) mg/dL Glucose 133 H (74-99) mg/dL Plasma Lactic Acid Charles (0.7-2.0) mmol/L AST 48 H (14-36) U/L ALT 40 H (4-34) U/L Urine Appearance Cloudy H (Clear) Urine Protein 1+ H (Negative) Urine Ketones Trace H (Negative) Urine Nitrite Positive H (Negative) Ur Leukocyte Esterase Small H (Negative) Ur Squamous Epith Cells 5 H (0-4) /hpf Urine Bacteria Many H (None) /hpf Urine Mucus Occasional H (None) /hpf 01/11/21 01/11/21 Range/Units 07:28 10:39 Neutrophils # (1.3-7.7) k/uL Lymphocytes # (1.0-4.8) k/uL BUN (7-17) mg/dL Glucose (74-99) mg/dL Plasma Lactic Acid Charles 3.3 H* 3.0 H* (0.7-2.0) mmol/L AST (14-36) U/L ALT (4-34) U/L Urine Appearance (Clear) Urine Protein (Negative) Urine Ketones (Negative) Urine Nitrite (Negative) Ur Leukocyte Esterase (Negative) Ur Squamous Epith Cells (0-4) /hpf Urine Bacteria (None) /hpf Urine Mucus (None) /hpf Diabetes panel 01/11/21 Range/Units 07:28 Sodium 137 (137-145) mmol/L Potassium 3.5 (3.5-5.1) mmol/L Chloride 103 (98-107) mmol/L Carbon Dioxide 24 (22-30) mmol/L BUN 27 H (7-17) mg/dL Creatinine 0.88 (0.52-1.04) mg/dL Glucose 133 H (74-99) mg/dL Calcium 9.4 (8.4-10.2) mg/dL AST 48 H (14-36) U/L ALT 40 H (4-34) U/L Alkaline Phosphatase 111 (38-126) U/L Total Protein 6.7 (6.3-8.2) g/dL Albumin 3.7 (3.5-5.0) g/dL Calcium panel 01/11/21 Range/Units 07:28 Calcium 9.4 (8.4-10.2) mg/dL Albumin 3.7 (3.5-5.0) g/dL Pituitary panel 01/11/21 Range/Units 07:28 Sodium 137 (137-145) mmol/L Potassium 3.5 (3.5-5.1) mmol/L Chloride 103 (98-107) mmol/L Carbon Dioxide 24 (22-30) mmol/L BUN 27 H (7-17) mg/dL Creatinine 0.88 (0.52-1.04) mg/dL Glucose 133 H (74-99) mg/dL Calcium 9.4 (8.4-10.2) mg/dL Adrenal panel 01/11/21 Range/Units 07:28 Sodium 137 (137-145) mmol/L Potassium 3.5 (3.5-5.1) mmol/L Chloride 103 (98-107) mmol/L Carbon Dioxide 24 (22-30) mmol/L BUN 27 H (7-17) mg/dL Creatinine 0.88 (0.52-1.04) mg/dL Glucose 133 H (74-99) mg/dL Calcium 9.4 (8.4-10.2) mg/dL Total Bilirubin 0.5 (0.2-1.3) mg/dL AST 48 H (14-36) U/L ALT 40 H (4-34) U/L Alkaline Phosphatase 111 (38-126) U/L Total Protein 6.7 (6.3-8.2) g/dL Albumin 3.7 (3.5-5.0) g/dL Assessment and Plan Assessment: 45 yo female that presents to the hospital with left sided ureteral stone causing sepsis -OR for left sided stent placement
--- NOTE | 2021-01-11 16:46 | P.GSCN ---
History of Present Illness Consult date: 01/11/21 Reason for Consult: Fluid collection History of present illness: The patient presented to the emergency department with left-sided abdominal and flank pain along with fever and chills. She had a CT performed showing hydronephrosis due to a distal ureteral stone. She also had a fluid collection in the recent surgical site. Patient denies any significant incisional pain. She was seen in the OR prior to any anesthetic being given. Review of Systems All systems: negative Past Medical History Additional Past Medical History / Comment(s): Kidney stones, History of Any Multi-Drug Resistant Organisms: None Reported Past Surgical History: Bariatric Surgery, Hysterectomy Additional Past Surgical History / Comment(s): Gastric sleeve, trigger finger, carpal tunnel, lithotripsy, Hernia Additional Past Anesthesia/Blood Transfusion Reaction / Comm: PT STATES "I HAVE WOKEN UP BEFORE DURING SURGERY" Past Psychological History: Depression Smoking Status: Never smoker Past Alcohol Use History: Daily Past Drug Use History: None Reported - Past Family History Mother Family Medical History: Diabetes Mellitus, Hypertension Father Family Medical History: Hypertension Medications and Allergies Home Medications Medication Instructions Recorded Confirmed Type Naproxen 500 mg PO BID 01/11/21 01/11/21 History Venlafaxine HCl ER [Effexor Xr] 225 mg PO DAILY 01/11/21 01/11/21 History hydroCHLOROthiazide [Hydrodiuril] 25 mg PO DAILY 01/11/21 01/11/21 History metFORMIN HCL ER [Glucophage XR] 1,000 mg PO DAILY 01/11/21 01/11/21 History Allergies Allergy/AdvReac Type Severity Reaction Status Date / Time sulfamethoxazole AdvReac Nausea & Verified 01/11/21 12:12 [From Bactrim] Vomiting trimethoprim [From Bactrim] AdvReac Nausea & Verified 01/11/21 12:12 Vomiting TAPE AdvReac Rash/Hives Uncoded 01/11/21 16:07 Surgical - Exam Osteopathic Statement: *. No significant issues noted on an osteopathic structural exam other than those noted in the History and Physical/Consult. Vital Signs Temp Pulse Resp BP Pulse Ox 99 F 118 H 20 120/70 97 01/11/21 06:53 01/11/21 06:53 01/11/21 06:53 01/11/21 06:53 01/11/21 06:53 - General well developed, well nourished, no distress - Abdomen Incision is intact. No cellulitis. Soft fluid collection. Abdomen: soft Results - Labs 01/11/21 07:28 01/11/21 07:28 Abnormal Lab Results - Last 24 Hours (Table) 01/11/21 01/11/21 01/11/21 Range/Units 07:28 07:28 07:28 Neutrophils # 8.2 H (1.3-7.7) k/uL Lymphocytes # 0.5 L (1.0-4.8) k/uL BUN 27 H (7-17) mg/dL Glucose 133 H (74-99) mg/dL POC Glucose (mg/dL) (75-99) mg/dL Plasma Lactic Acid Charles (0.7-2.0) mmol/L AST 48 H (14-36) U/L ALT 40 H (4-34) U/L Urine Appearance Cloudy H (Clear) Urine Protein 1+ H (Negative) Urine Ketones Trace H (Negative) Urine Nitrite Positive H (Negative) Ur Leukocyte Esterase Small H (Negative) Ur Squamous Epith Cells 5 H (0-4) /hpf Urine Bacteria Many H (None) /hpf Urine Mucus Occasional H (None) /hpf 01/11/21 01/11/21 01/11/21 Range/Units 07:28 10:39 15:31 Neutrophils # (1.3-7.7) k/uL Lymphocytes # (1.0-4.8) k/uL BUN (7-17) mg/dL Glucose (74-99) mg/dL POC Glucose (mg/dL) 110 H (75-99) mg/dL Plasma Lactic Acid Charles 3.3 H* 3.0 H* (0.7-2.0) mmol/L AST (14-36) U/L ALT (4-34) U/L Urine Appearance (Clear) Urine Protein (Negative) Urine Ketones (Negative) Urine Nitrite (Negative) Ur Leukocyte Esterase (Negative) Ur Squamous Epith Cells (0-4) /hpf Urine Bacteria (None) /hpf Urine Mucus (None) /hpf 01/11/21 Range/Units 15:38 Neutrophils # (1.3-7.7) k/uL Lymphocytes # (1.0-4.8) k/uL BUN (7-17) mg/dL Glucose (74-99) mg/dL POC Glucose (mg/dL) (75-99) mg/dL Plasma Lactic Acid Charles 3.0 H* (0.7-2.0) mmol/L AST (14-36) U/L ALT (4-34) U/L Urine Appearance (Clear) Urine Protein (Negative) Urine Ketones (Negative) Urine Nitrite (Negative) Ur Leukocyte Esterase (Negative) Ur Squamous Epith Cells (0-4) /hpf Urine Bacteria (None) /hpf Urine Mucus (None) /hpf Microbiology - Last 24 Hours (Table) 01/11/21 08:00 Urine Culture - Preliminary Urine,Voided Diabetes panel 01/11/21 Range/Units 07:28 Sodium 137 (137-145) mmol/L Potassium 3.5 (3.5-5.1) mmol/L Chloride 103 (98-107) mmol/L Carbon Dioxide 24 (22-30) mmol/L BUN 27 H (7-17) mg/dL Creatinine 0.88 (0.52-1.04) mg/dL Glucose 133 H (74-99) mg/dL Calcium 9.4 (8.4-10.2) mg/dL AST 48 H (14-36) U/L ALT 40 H (4-34) U/L Alkaline Phosphatase 111 (38-126) U/L Total Protein 6.7 (6.3-8.2) g/dL Albumin 3.7 (3.5-5.0) g/dL Calcium panel 01/11/21 Range/Units 07:28 Calcium 9.4 (8.4-10.2) mg/dL Albumin 3.7 (3.5-5.0) g/dL Pituitary panel 01/11/21 Range/Units 07:28 Sodium 137 (137-145) mmol/L Potassium 3.5 (3.5-5.1) mmol/L Chloride 103 (98-107) mmol/L Carbon Dioxide 24 (22-30) mmol/L BUN 27 H (7-17) mg/dL Creatinine 0.88 (0.52-1.04) mg/dL Glucose 133 H (74-99) mg/dL Calcium 9.4 (8.4-10.2) mg/dL Adrenal panel 01/11/21 Range/Units 07:28 Sodium 137 (137-145) mmol/L Potassium 3.5 (3.5-5.1) mmol/L Chloride 103 (98-107) mmol/L Carbon Dioxide 24 (22-30) mmol/L BUN 27 H (7-17) mg/dL Creatinine 0.88 (0.52-1.04) mg/dL Glucose 133 H (74-99) mg/dL Calcium 9.4 (8.4-10.2) mg/dL Total Bilirubin 0.5 (0.2-1.3) mg/dL AST 48 H (14-36) U/L ALT 40 H (4-34) U/L Alkaline Phosphatase 111 (38-126) U/L Total Protein 6.7 (6.3-8.2) g/dL Albumin 3.7 (3.5-5.0) g/dL - Imaging CT scan - abdomen: report reviewed, image reviewed Assessment and Plan (1) Sepsis Current Visit: Yes Status: Acute Code(s): A41.9 - SEPSIS, UNSPECIFIED ORGANISM SNOMED Code(s): 26706496 (2) Postoperative seroma Current Visit: Yes Status: Acute Code(s): XHU2299 - SNOMED Code(s): 650530692 (3) Kidney stone Current Visit: Yes Status: Acute Code(s): N20.0 - CALCULUS OF KIDNEY SNOMED Code(s): 24921413 (4) Pyelonephritis Current Visit: Yes Status: Acute Code(s): N12 - TUBULO-INTERSTITIAL NEPHRITIS, NOT SPCF ACUTE OR CHRONIC SNOMED Code(s): 16516343 Plan: Her sepsis appears to be due to the nephrolithiasis with ureteral obstruction. Her surgery was done last week. The surgical site shows no evidence of cellulitis. I recommended to the patient that an aspirate be obtained to send for culture. The patient was in agreement. Her abdomen was prepped with ChloraPrep. A 22-gauge needle was advanced into the fluid collection. About 10 mL's of light red fluid were aspirated. Part of this was sent for culture. A Band-Aid was applied. I'll check on the culture . Continue medical treatment for her sepsis.
[2021-01-11] MEDS ORDERED: SODIUM CHLORIDE 0.9% 500 ML IV ONE (16:49)
--- NOTE | 2021-01-11 16:55 | P.OP ---
Date of Procedure: 01/11/21 Preoperative Diagnosis: Left ureteral stone, sepsis Postoperative Diagnosis: Same Procedure(s) Performed: Cystoscopy, left stent placement Implants: 6-Indian by 24 cm stent Anesthesia: LEN Surgeon: Reza Emmanuel Estimated Blood Loss (ml): 1 Pathology: none sent Condition: stable Disposition: ICU Indications for Procedure: This is a 45-year-old female that presented to the hospital with a 6 mm left- sided proximal stone. She was septic on presentation. Discussed with her given her sepsis recommend proceeding with a stent placement. Discussed risk and benefit with her. She agreed to proceed, discussed this is not a definitive stone management, and she will need definitive stone management once were infection clears up Description of Procedure: Patient was brought to the operating room, general anesthesia was induced. She was prepped and draped in sterile fashion placed in dorsal lithotomy position. Cystoscopy fitted with a 21-Indian sheath was inserted per urethra, cystoscopy was performed showed no abnormality within the bladder. Attention was then carried to the left ureteral orifice which was intubated with a sensor wire. Next a ureteral catheter was passed over the wire, and a renal aspirate was ob tained and sent for culture. renal aspirate showed cloudy urine. Next the catheter was removed with the wire in place. Next a ureteral stent was passed over the wire, the proximal curl was visualized on fluoroscopy and the distal curl was visualized using the scope. The bladder was emptied at the end of the case. Patient tolerated the procedure well was taken to PACU in stable condition
[2021-01-11] MEDS: NOREPINEPHRINE 4 MG in SODIUM CHLORIDE 0.9% 250 ML IV SCH (18:43)
--- NOTE | 2021-01-11 19:56 | P.CNPUL ---
History of Present Illness Consult date: 01/11/21 Chief complaint: Sepsis/UTI/nephrolithiasis/hydronephrosis History of present illness: Ordered 5-year-old female patient, brought into the intensive care unit after having a cystoscopy and left stent placement. The patient had a left ureteral s tone with secondary sepsis. The patient had a 6 mm left sided proximal ureteral stone. She presented to the hospital and she was in septic shock. The patient proceeded going to the operating room with cystostomy and double-J stent placement. Following that, the patient was brought into the intensive care for further monitoring and evaluation. Note that the patient initially presented with a left-sided abdominal and flank pain along with fever and chills. CAT scan of the abdomen and pelvis showed hydronephrosis due to a distal ureteral stone. She had also a fluid collection in the recent surgical site noted the patient underwent bariatric surgery/gastric sleeve. This was evaluated by neurosurgery and it was considered to be a postoperative seroma. The surgery was done by Dr. fletcher and the patient had a gastric sleeve surgery in 2012 complicated anterior abdominal wall hernia that was recently repaired on 01/05/2021 and subsequently she developed an incisional seroma. The patient has denied having any dysuria. She did have history of nephrolithiasis and the patient undergone previous lithotripsy many years back. She had Trouble 1.4 at time of admission and the patient was quite tachycardic. CBC was unremarkable and a lactic acid level was at 3.3. Urinalysis was positive for nitrites. COVID 19 testing was negative. CAT scan of the abdomen was mentioned above. The patient currently is receiving IV fluids and the patient is currently on IV Zosyn. Fluids are running at the rate of 130s's an hour and the patient has already received a total of 2 L prior to her coming in to the intensive care unit and this along with a 2 L in the emergency department led into total of 4 L of IV fluids. Pressors have not been started. Most recent echo just level is down to 3.0. Cultures still pending for now. Review of Systems Constitutional: Reports fatigue, Reports fever, Reports weakness Eyes: denies as per HPI, denies blurred vision, denies bulging eye, denies decreased vision, denies diplopia, denies discharge, denies dry eye, denies irritation, denies itching, denies pain, denies photophobia, denies loss of peripheral vision, denies loss of vision, denies tunnel vision/blind spots Ears: deny: decreased hearing, ear discharge, earache, tinnitus Ears, nose, mouth and throat: Reports as per HPI Breasts: absent: as per HPI, change in shape, gynecomastia, masses, nipple discharge, pain, skin changes, swelling Cardiovascular: Reports as per HPI Respiratory: Reports as per HPI Gastrointestinal: Reports as per HPI Genitourinary: Reports as per HPI, Reports dysuria, Reports flank pain, Reports kidney stones Menstruation: Reports as per HPI Musculoskeletal: Reports as per HPI Musculoskeletal: absent: ankle pain, ankle stiffness, ankle swelling, as per HPI, elbow pain, elbow stiffness, elbow swelling, foot pain, foot stiffness, foot swelling, hand pain, hand stiffness, hand swelling, hip pain, hip stiffness, hip swelling, knee pain, knee stiffness, knee swelling, shoulder pain, shoulder stiffness, shoulder swelling, wrist pain, wrist stiffness, wrist swelling Integumentary: Reports as per HPI Neurological: Reports as per HPI Psychiatric: Reports as per HPI Endocrine: Reports as per HPI Hematologic/Lymphatic: Reports as per HPI Allergic/Immunologic: Reports as per HPI Past Medical History Additional Past Medical History / Comment(s): Kidney stones, History of Any Multi-Drug Resistant Organisms: None Reported Past Surgical History: Bariatric Surgery, Hysterectomy Additional Past Surgical History / Comment(s): Gastric sleeve, trigger finger, carpal tunnel, lithotripsy, Hernia Additional Past Anesthesia/Blood Transfusion Reaction / Comment(s): PT STATES "I HAVE WOKEN UP BEFORE DURING SURGERY" Past Psychological History: Depression Smoking Status: Never smoker Past Alcohol Use History: Daily Past Drug Use History: None Reported - Past Family History Mother Family Medical History: Diabetes Mellitus, Hypertension Father Family Medical History: Hypertension Medications and Allergies Home Medications Medication Instructions Recorded Confirmed Type Naproxen 500 mg PO BID 01/11/21 01/11/21 History Venlafaxine HCl ER [Effexor Xr] 225 mg PO DAILY 01/11/21 01/11/21 History hydroCHLOROthiazide [Hydrodiuril] 25 mg PO DAILY 01/11/21 01/11/21 History metFORMIN HCL ER [Glucophage XR] 1,000 mg PO DAILY 01/11/21 01/11/21 History Allergies Allergy/AdvReac Type Severity Reaction Status Date / Time sulfamethoxazole AdvReac Nausea & Verified 01/11/21 12:12 [From Bactrim] Vomiting trimethoprim [From Bactrim] AdvReac Nausea & Verified 01/11/21 12:12 Vomiting TAPE AdvReac Rash/Hives Uncoded 01/11/21 16:07 Physical Exam Vitals: Vital Signs Temp Pulse Pulse Pulse Resp BP BP 01/11/21 15:02 131 H 95/63 01/11/21 14:47 135 H 91/62 01/11/21 14:37 102.9 F H 133 H 42 H 85/54 01/11/21 14:32 132 H 84/55 01/11/21 14:18 127 H 85/54 01/11/21 14:03 134 H 91/52 01/11/21 13:34 98.5 F 122 H 122 H 42 H 113/76 01/11/21 12:20 101.1 F H 120 H 32 H 113/76 01/11/21 12:00 101 H 01/11/21 11:31 98.3 F 101 H 18 01/11/21 09:28 99.4 F 100 18 119/67 01/11/21 07:11 101.4 F H 01/11/21 06:53 99 F 118 H 20 120/70 BP Pulse Ox 01/11/21 15:02 95 01/11/21 14:47 94 L 01/11/21 14:37 84/54 94 L 01/11/21 14:32 93 L 01/11/21 14:18 95 01/11/21 14:03 93 L 01/11/21 13:34 95 01/11/21 12:20 92 L 01/11/21 12:00 01/11/21 11:31 104/70 100 01/11/21 09:28 98 01/11/21 07:11 01/11/21 06:53 97 Intake and Output 01/11/21 01/11/21 01/11/21 06:59 14:59 22:59 Intake Total 300 Output Total 250 0 Balance -250 300 Intake: IV 300 Output: Urine 250 Estimated Blood Loss 0 Other: Voiding Method Bedpan Weight 108.862 kg 110.223 kg Gen. appearance, the patient is calm and comfortable nonacute distress. Head exam was generally normal. There was no scleral icterus or corneal arcus. Mucous membranes were moist. Neck was supple and without jugular venous distension, thyromegaly, or carotid bruits. Carotids were easily palpable bilaterally. There was no adenopathy. Lungs were clear to auscultation and percussion, and with normal diaphragmatic excursion. No wheezes or rales were noted. Cardiac exam revealed the PMI to be normally situated and sized. The rhythm was regular and no extrasystoles were noted during several minutes of auscultation. The first and second heart sounds were normal and physiologic splitting of the second heart sound was noted. There were no murmurs, rubs, clicks, or gallops. Abdomen is soft nontender. There is no cellulitis and there is a soft fluid collection at the incision site from the previous bariatric surgery. No direct tenderness. No rebound tenderness no guarding. Overall abdominal examination is soft. Examination of the extremities revealed easily palpable radial, femoral and pedal pulses. There was no cyanosis, clubbing or edema. Examination of the skin revealed no evidence of significant rashes, suspicious appearing nevi or other concerning lesions. Neurologically, the patient is awake and alert and the patient does not have any focal neurological deficit. Cranial nerves are essentially intact. Results - Laboratory Findings CBC and BMP: 01/11/21 07:28 01/11/21 07:28 Abnormal lab findings: Abnormal Labs 01/11/21 01/11/21 01/11/21 07:28 07:28 07:28 Neutrophils # 8.2 H Lymphocytes # 0.5 L BUN 27 H Glucose 133 H POC Glucose (mg/dL) Plasma Lactic Acid Charles AST 48 H ALT 40 H Urine Appearance Cloudy H Urine Protein 1+ H Urine Ketones Trace H Urine Nitrite Positive H Ur Leukocyte Esterase Small H Ur Squamous Epith Cells 5 H Urine Bacteria Many H Urine Mucus Occasional H 01/11/21 01/11/21 01/11/21 07:28 10:39 15:31 Neutrophils # Lymphocytes # BUN Glucose POC Glucose (mg/dL) 110 H Plasma Lactic Acid Charles 3.3 H* 3.0 H* AST ALT Urine Appearance Urine Protein Urine Ketones Urine Nitrite Ur Leukocyte Esterase Ur Squamous Epith Cells Urine Bacteria Urine Mucus 01/11/21 15:38 Neutrophils # Lymphocytes # BUN Glucose POC Glucose (mg/dL) Plasma Lactic Acid Charles 3.0 H* AST ALT Urine Appearance Urine Protein Urine Ketones Urine Nitrite Ur Leukocyte Esterase Ur Squamous Epith Cells Urine Bacteria Urine Mucus Assessment and Plan Plan: 1 sepsis secondary to UTI/pyelonephritis. The patient presented to us with a obstructive uropathy and a distal ureteral stone measuring 6 mm in size and the patient hydronephrosis, underwent emergent cystoscopy and ureteral stent insertion. Currently on IV antibiotics IV Zosyn. Received a total of 4 L of IV fluids and the patient is currently on a maintenance of 130 mL an hour of normal saline 2 lactic acidosis secondary to above 3 nephrolithiasis 4 obesity with a BMI of 44.4 5 surgical seroma following a abdominal wall hernia repair. The fluid collection/seroma was drained, awaiting cultures. No surrounding cellulitis. Surgical wound site is dry clean and intact. 6 bariatric surgery/gastric sleevein 2012 Plan Continue IV fluids with normal saline today to 130s's an hour Urine cultures and blood cultures Urology follow-up Monitor the lactic acid level Continue with IV Zosyn Pressors if needed to maintain a mean artery pressure above 65 Neurosurgery consultation regarding the surgical seroma. The surgical wound site did not have any evidence of cellulitis. The fluid will be aspirated by general surgery and sent for cultures. Keep the patient in the intensive care unit for now We'll continue to follow
[2021-01-11] MEDS: FAMOTIDINE 20 MG/2 ML VIAL IV SCH (21:35)
[2021-01-11] MEDS: THIAMINE 100 MG/ML 2 ML VIAL IVP SCH (21:35)
[2021-01-11] MEDS: ONDANSETRON 4 MG/2 ML VIAL IVP PRN (21:35)
[2021-01-11] MEDS: HEPARIN SODIUM,PORCINE/PF 5,000 UNIT/0.5 ML SYRINGE SQ SCH (21:35)
--- NOTE | 2021-01-11 22:23 | P.CONS ---
History of Present Illness - Reason for Consult Consult date: 01/11/21 sepsis Requesting physician: Lj Guzman - Chief Complaint left sided flank pain x 1 day - History of Present Illness History of present illness : Patient is a 45-year female presenting to the ER early this morning for evaluation of left-sided flank pain that woke her up from sleep patient describes the pain to be sharp in nature intensity is almost 10 out of 10 in severity with ambulation to the left groin area patient did have associated nausea and vomiting patient denies any diarrhea did have some hematuria with the symptom the patient was evaluated by the ER physician on arrival to the ER patient did have a fever of 101.4 F patient was tachycardic patient did have a elevated lactic acid white count was normal however did have a left shift creatinine was normal liver enzymes are mildly elevated urine was positive whiting PCR was negative the patient did have a CT of abdominal pelvis completed which shows moderate to severe left-sided hydronephrosis with delayed excretion secondary to new 5 to 6 mm proximal left ureteral calculus the patient was started on gentamicin because of her Bactrim allergy, infectious disease was consulted for further management of antibiotic therapy Review of system: CONSTITUTIONAL: Positive for weakness along with the fever. EYES: No complaint. ENT: No complaint. RESPIRATORY: No complaint. CARDIOVASCULAR: No complaint. GENITOURINARY: As per history of present illness. GASTROINTESTINAL: As per history of present illness. MUSCULOSKELETAL: No complaint. INTEGUMENTARY: No complaint. PSYCHOLOGIC: No complaint. ENDOCRINE: No complaint. NEUROLOGIC: No complaint. Past medical history : Reviewed, documented below Past surgical history : Reviewed, documented below Social history: Reviewed, documented below Medications: Reviewed, as documented below EXAMINATION: Vital sigans= Reviewed and documented below GENERAL DESCRIPTION: Middle-aged female lying in bed, no distress. No tachypnea or accessory muscle of respiration use. HEENT: Shows Pallor , no scleral icterus. Oral mucous membrane is dry. NECK: Trachea central, no thyromegaly. LUNGS: Unlabored breathing. Clear to auscultation anteriorly. No wheeze or crackle. HEART: S1, S2, regular rate and rhythm. ABDOMEN: Soft, no tenderness , guarding or rigidity EXTREMITIES: No edema of feet. SKIN: No rash, no masses palpable. NEUROLOGICAL: The patient is awake, alert, oriented x3, mood and affect normal. LABS AND RADIOLOGY: Reviewed results see below Assessment : Patient presented to hospital with sepsis in this patient who did have a fever tachycardia elevated lactic acid source is complicated UTI in this patient who did have a moderate to severe left-sided hydronephrosis from ureteropelvic junction stone and will need to cover for enteric gram-negative the likely pathogen Plan: 1-discontinue gentamicin decrease risk of nephrotoxicity 2-cefepime 2 g every 8 hour 3-IV fluids We will follow on clinical condition and cultures to further adjust medication if needed Thank you for this consultation we will follow the patient along with you Past Medical History Additional Past Medical History / Comment(s): Kidney stones, History of Any Multi-Drug Resistant Organisms: None Reported Past Surgical History: Bariatric Surgery, Hysterectomy Additional Past Surgical History / Comment(s): Gastric sleeve, trigger finger, carpal tunnel, lithotripsy, Hernia Additional Past Anesthesia/Blood Transfusion Reaction / Comm: PT STATES "I HAVE WOKEN UP BEFORE DURING SURGERY" Past Psychological History: Depression Smoking Status: Never smoker Past Alcohol Use History: Daily Past Drug Use History: None Reported - Past Family History Mother Family Medical History: Diabetes Mellitus, Hypertension Father Family Medical History: Hypertension Medications and Allergies Home Medications Medication Instructions Recorded Confirmed Type Naproxen 500 mg PO BID 01/11/21 01/11/21 History Venlafaxine HCl ER [Effexor Xr] 225 mg PO DAILY 01/11/21 01/11/21 History hydroCHLOROthiazide [Hydrodiuril] 25 mg PO DAILY 01/11/21 01/11/21 History metFORMIN HCL ER [Glucophage XR] 1,000 mg PO DAILY 01/11/21 01/11/21 History Allergies Allergy/AdvReac Type Severity Reaction Status Date / Time sulfamethoxazole AdvReac Nausea & Verified 01/11/21 12:12 [From Bactrim] Vomiting trimethoprim [From Bactrim] AdvReac Nausea & Verified 01/11/21 12:12 Vomiting TAPE AdvReac Rash/Hives Uncoded 01/11/21 16:07 Physical Exam Vitals: Vital Signs Temp Pulse Pulse Pulse Resp BP BP 01/11/21 21:00 121 H 34 H 100/42 01/11/21 20:30 99.3 F 126 H 34 H 112/51 01/11/21 20:00 121 H 21 94/52 01/11/21 19:30 121 H 37 H 114/49 01/11/21 19:00 125 H 26 H 80/47 01/11/21 18:30 131 H 28 H 84/45 01/11/21 18:00 134 H 26 H 86/45 01/11/21 17:30 134 H 32 H 90/62 01/11/21 16:00 101.2 F H 128 H 30 H 94/61 01/11/21 15:02 131 H 95/63 01/11/21 14:47 135 H 91/62 01/11/21 14:37 102.9 F H 133 H 42 H 85/54 01/11/21 14:32 132 H 84/55 01/11/21 14:18 127 H 85/54 01/11/21 14:03 134 H 91/52 01/11/21 13:34 98.5 F 122 H 122 H 42 H 113/76 01/11/21 12:20 101.1 F H 120 H 32 H 113/76 01/11/21 12:00 101 H 01/11/21 11:31 98.3 F 101 H 18 01/11/21 09:28 99.4 F 100 18 119/67 01/11/21 07:11 101.4 F H 01/11/21 06:53 99 F 118 H 20 120/70 BP Pulse Ox 01/11/21 21:00 97 01/11/21 20:30 98 01/11/21 20:00 96 01/11/21 19:30 97 01/11/21 19:00 98 01/11/21 18:30 98 01/11/21 18:00 97 01/11/21 17:30 98 01/11/21 16:00 93 L 01/11/21 15:02 95 01/11/21 14:47 94 L 01/11/21 14:37 84/54 94 L 01/11/21 14:32 93 L 01/11/21 14:18 95 01/11/21 14:03 93 L 01/11/21 13:34 95 01/11/21 12:20 92 L 01/11/21 12:00 01/11/21 11:31 104/70 100 01/11/21 09:28 98 01/11/21 07:11 01/11/21 06:53 97 Intake and Output 01/11/21 01/11/21 01/11/21 06:59 14:59 22:59 Intake Total 1025.967 Output Total 250 175 Balance -250 850.967 Intake: IV 920 Piperacillin-Tazobactam 3 100 .375 gm In Sodium Chloride 0.9% 100 ml @ 25 mls/hr IVPB Q8H [facility] Rx#: [id number] Sodium Chloride 0.9% 1, 520 000 ml @ 130 mls/hr IV . Q7H42M [facility] Rx#:[id number] Intake, IV Titration 105.967 Amount Norepinephrine 4 mg In 105.967 Sodium Chloride 0.9% 250 ml @ 0.05 MCG/KG/MIN 20. 997 mls/hr IV .Q12H6M [facility] Rx#:[id number] Output: Urine 250 175 Estimated Blood Loss 0 Other: Voiding Method Bedpan Weight 108.862 kg 110.223 kg Results CBC & Chem 7: 01/11/21 07:28 01/11/21 07:28 Labs: Abnormal Lab Results - Last 24 Hours (Table) 01/11/21 01/11/21 01/11/21 Range/Units 07:28 07:28 07:28 Neutrophils # 8.2 H (1.3-7.7) k/uL Lymphocytes # 0.5 L (1.0-4.8) k/uL BUN 27 H (7-17) mg/dL Glucose 133 H (74-99) mg/dL POC Glucose (mg/dL) (75-99) mg/dL Plasma Lactic Acid Charles (0.7-2.0) mmol/L AST 48 H (14-36) U/L ALT 40 H (4-34) U/L Urine Appearance Cloudy H (Clear) Urine Protein 1+ H (Negative) Urine Ketones Trace H (Negative) Urine Nitrite Positive H (Negative) Ur Leukocyte Esterase Small H (Negative) Ur Squamous Epith Cells 5 H (0-4) /hpf Urine Bacteria Many H (None) /hpf Urine Mucus Occasional H (None) /hpf 01/11/21 01/11/21 01/11/21 Range/Units 07:28 10:39 15:31 Neutrophils # (1.3-7.7) k/uL Lymphocytes # (1.0-4.8) k/uL BUN (7-17) mg/dL Glucose (74-99) mg/dL POC Glucose (mg/dL) 110 H (75-99) mg/dL Plasma Lactic Acid Charles 3.3 H* 3.0 H* (0.7-2.0) mmol/L AST (14-36) U/L ALT (4-34) U/L Urine Appearance (Clear) Urine Protein (Negative) Urine Ketones (Negative) Urine Nitrite (Negative) Ur Leukocyte Esterase (Negative) Ur Squamous Epith Cells (0-4) /hpf Urine Bacteria (None) /hpf Urine Mucus (None) /hpf 01/11/21 Range/Units 15:38 Neutrophils # (1.3-7.7) k/uL Lymphocytes # (1.0-4.8) k/uL BUN (7-17) mg/dL Glucose (74-99) mg/dL POC Glucose (mg/dL) (75-99) mg/dL Plasma Lactic Acid Charles 3.0 H* (0.7-2.0) mmol/L AST (14-36) U/L ALT (4-34) U/L Urine Appearance (Clear) Urine Protein (Negative) Urine Ketones (Negative) Urine Nitrite (Negative) Ur Leukocyte Esterase (Negative) Ur Squamous Epith Cells (0-4) /hpf Urine Bacteria (None) /hpf Urine Mucus (None) /hpf Microbiology - Last 24 Hours (Table) 01/11/21 07:28 Blood Culture - Final Blood 01/11/21 08:00 Urine Culture - Preliminary Urine,Voided
[2021-01-12] MEDS: NOREPINEPHRINE 4 MG in SODIUM CHLORIDE 0.9% 250 ML IV SCH ×2 (01:29→17:11)
[2021-01-12] MEDS: CEFEPIME 2 GM in SODIUM CHLORIDE 0.9% 100 ML IVPB SCH ×2 (01:29→17:57)
[2021-01-12 05:14] LABS: HCT 38.9 % (34.0-46.0); MCH 30.8 pg (25.0-35.0); MCHC 33.4 g/dL (31.0-37.0); MCV 92.1 fL (80.0-100.0); Mean Platelet Volume 7.7; Platelet Count 120 k/uL (150-450); RBC 4.22 m/uL (3.80-5.40); RDW 13.2 % (11.5-15.5); WBC 18.4 k/uL (3.8-10.6)
[2021-01-12 05:36] LABS: African American GFR (CKD) >90 (>60 ml/min/1.73 sqM); Anion Gap 8 mmol/L; Blood Urea Nitrogen 21 mg/dL (7-17); Calcium 7.3 mg/dL (8.4-10.2); Carbon Dioxide 21 mmol/L (22-30); Chloride 112 mmol/L (98-107); Glucose 112 mg/dL (74-99); Magnesium 1.3 mg/dL (1.6-2.3); Non-African American GFR(CKD) 80 (>60 ml/min/1.73 sqM); Potassium 4.4 mmol/L (3.5-5.1); Sodium 141 mmol/L (137-145)
[2021-01-12] MEDS: HYDROmorphone 1 MG/ML 1 ML SYRINGE IVP PRN ×4 (05:48→21:09)
[2021-01-12] MEDS ORDERED: Magnesium Replacement Protocol 1 EACH MISC MISCELLANE PRN (06:00)
[2021-01-12 06:07] LABS: Band Neutrophils % 37 %; Eosinophils # (M) 0.55 k/uL (0-0.7); Lymphocytes # (M) 0.92 k/uL (1.0-4.8); Monocytes # (M) 0.37 k/uL (0-1.0); Neutrophils % (M) 53 %; Nucleated Red Blood Cells 0 /100 WBC (0-0); Total Cells Counted 200
[2021-01-12] MEDS: MAGNESIUM SULFATE-D5W PMX 1 GM in DEXTROSE/WATER 1 100ML.BAG IVPB SCH ×3 (06:35→11:50)
[2021-01-12] MEDS ORDERED: SODIUM CHLORIDE 0.9% 1,000 ML IV ONE (08:59)
[2021-01-12] MEDS: SODIUM CHLORIDE 0.9% 1,000 ML IV SCH ×4 (09:45→17:43)
[2021-01-12] MEDS: HEPARIN SODIUM,PORCINE/PF 5,000 UNIT/0.5 ML SYRINGE SQ SCH ×2 (10:09→21:08)
[2021-01-12] MEDS: FAMOTIDINE 20 MG/2 ML VIAL IV SCH ×2 (10:09→21:08)
--- NOTE | 2021-01-12 10:10 | FL ---
Fluoroscopy History: STENT PLACEMENT STENT PLACEMENT. .[address] LARIOS.
[2021-01-12] MEDS ORDERED: TERBUTALINE 1 MG/ML VIAL SQ ONE (10:23)
[2021-01-12] MEDS: ALPRAZolam 0.25 MG TAB PO PRN ×2 (11:01→21:09)
--- NOTE | 2021-01-12 11:43 | P.PN ---
Subjective This is a pleasant 45 years old female with past medical history of hysterectomy, kidney stone and she follows up with Dr. Mireles many years ago, hist ory of gastric sleeve surgery complicated by incisional hernia status post hernia repair done by Dr. fletcher last Sunday. Presents this time because of left abdominal pain with fever that started yesterday, pain is radiating from her left lower back into the left flank area, felt like sharp moderate to severe in the quantity about 10/10, currently is 7/10 with pain medication. She denies any dysuria or urgency but she notices she's been less than usual. She has kidney stone status post lithotripsy done with Dr. Mireles many years ago. Smoking or illicit drugs but she drinks alcohol leak or every day and could not specify all marked On admission she is febrile with 101.4. Restoril vitals are stable however she is tachycardic with heart rate 100-118. CBC is unremarkable as well as CBC and liver enzymes mildly elevated with AST 48 and ALT 40. Lactic acid is elevated at 3.3, and 3.0. Urinalysis is positive for nitrite. Coronavirus not detected. CT of the abdomen and pelvis with contrast: Moderate to severe left-sided hydronephrosis with delayed excretion secondary to 5-6 mm proximal left ureteral calculus Also there is some thin walled loculated fluid collection adjacent to her surg ical wound favor postsurgical seroma with a small blood component or hematoma In the emergency room patient received 1 dose of Rocephin and gentamicin. Urologist has been contacted by ENT team. We are asked for infectious disease consult recommended Zosyn was started for the patient. Also she is on normal saline at 1 30 mL/h Liver enzymes trending down 01/12/2021 Patient yesterday developed low blood pressure and tachycardia with tachypnea with redrape wasn't 30s and 40s, she received 4 L of normal saline and then she was transferred to the ICU where she needed small dose of levophed. Urologist evaluated the patient urgently and she underwent cystoscopy with left ureteral stent placement. This morning she is fully awake and oriented and she feels little better. She still have some lower abdominal pain and tenderness, no maurisio urinary symptoms. She is still little hypotensive with blood pressure 85/62, breathing rate is better 15-18 and she is an 8 liters per minute oxygen. Active fever yesterday of 102.9. Labs show leukocytosis of 18 Urine culture is growing E. coli sensitive to many antibiotics and discharged to ceftriaxone 2 g daily today She's also normal saline at 130 mL/h Objective - Vital Signs Vital signs: Vital Signs Temp 99.2 F 01/12/21 08:00 Pulse 99 01/12/21 10:15 Resp 18 01/12/21 10:00 BP 85/62 01/12/21 10:15 Pulse Ox 98 01/12/21 10:15 Intake & Output 01/11/21 01/12/21 01/12/21 18:59 06:59 18:59 Intake Total 432.52 2019.108 1433.885 Output Total 250 950 375 Balance 182.52 4559.185 3852.885 Weight 110.223 kg Intake: IV 430 1760 1390 Cefepime 2 gm In Sodium 100 Chloride 0.9% 100 ml @ 25 mls/hr IVPB Q8HR [facility] Rx# :[id number] Piperacillin-Tazobactam 3 100 .375 gm In Sodium Chloride 0.9% 100 ml @ 25 mls/hr IVPB Q8H [facility] Rx#: [id number] Sodium Chloride 0.9% 1, 130 1560 390 000 ml @ 130 mls/hr IV . Q7H42M [facility] Rx#:[id number] Sodium Chloride 0.9% 1, 1000 000 ml @ 999 mls/hr IV . Q1H1M [facility] Rx#:[id number] Intake, IV Titration 2.52 259.108 43.885 Amount Norepinephrine 4 mg In 2.52 259.108 43.885 Sodium Chloride 0.9% 250 ml @ 0.05 MCG/KG/MIN 20. 997 mls/hr IV .Q12H6M [facility] Rx#:[id number] Output: Urine 250 950 375 Estimated Blood Loss 0 Other: Voiding Method Bedpan Indwelling Catheter - Exam GENERAL: The patient is alert and oriented x3, not in any acute distress. Well developed, well nourished. HEENT: Pupils are round and equally reacting to light. EOMI. No scleral icterus. No conjunctival pallor. Normocephalic, atraumatic. No pharyngeal erythema. No thyromegaly. CARDIOVASCULAR: S1 and S2 present. No murmurs, rubs, or gallops. PULMONARY: Chest is clear to auscultation, no wheezing or crackles. -ABDOMEN: Soft, lower abdominal tenderness, nondistended, normoactive bowel sounds. No palpable organomegaly. MUSCULOSKELETAL: No joint swelling or deformity. EXTREMITIES: No cyanosis, clubbing, or pedal edema. NEUROLOGICAL: Gross neurological examination did not reveal any focal deficits. SKIN: No rashes. no petechiae. - Labs CBC & Chem 7: 01/12/21 03:54 01/12/21 03:54 Labs: Abnormal Lab Results - Last 24 Hours (Table) 01/11/21 01/11/21 01/12/21 Range/Units 15:31 15:38 03:54 WBC 18.4 H (3.8-10.6) k/uL Plt Count 120 L (150-450) k/uL Neutrophils # (Manual) 16.50 H (1.3-7.7) k/uL Lymphocytes # (Manual) 0.92 L (1.0-4.8) k/uL Chloride (98-107) mmol/L Carbon Dioxide (22-30) mmol/L BUN (7-17) mg/dL Glucose (74-99) mg/dL POC Glucose (mg/dL) 110 H (75-99) mg/dL Plasma Lactic Acid Charles 3.0 H* (0.7-2.0) mmol/L Calcium (8.4-10.2) mg/dL Magnesium (1.6-2.3) mg/dL 01/12/21 Range/Units 03:54 WBC (3.8-10.6) k/uL Plt Count (150-450) k/uL Neutrophils # (Manual) (1.3-7.7) k/uL Lymphocytes # (Manual) (1.0-4.8) k/uL Chloride 112 H (98-107) mmol/L Carbon Dioxide 21 L (22-30) mmol/L BUN 21 H (7-17) mg/dL Glucose 112 H (74-99) mg/dL POC Glucose (mg/dL) (75-99) mg/dL Plasma Lactic Acid Charles (0.7-2.0) mmol/L Calcium 7.3 L (8.4-10.2) mg/dL Magnesium 1.3 L (1.6-2.3) mg/dL Microbiology - Last 24 Hours (Table) 01/11/21 16:46 Wound Culture - Preliminary Other - Other 01/11/21 16:46 Anaerobic Culture - Preliminary Other - Other 01/11/21 07:28 Blood Culture - Preliminary Blood No Growth after 24 hours 01/11/21 07:28 Blood Culture Gram Stain - Preliminary Blood Blood Culture - Preliminary Escherichia coli 01/11/21 07:28 Blood Culture - Final Blood 01/11/21 08:00 Urine Culture - Preliminary Urine,Voided Assessment and Plan Assessment: Acute urinary tract infection with left sided hydronephrosis. Secondary to E. coli Severe sepsis with septic shock, improved with fever and tachycardia secondary to above mild to severe left-sided hydronephrosis secondary to 5-6 mm kidney stone on the proximal ureter . Status post cystoscopy and stent placement in the left ureter on 01/11 recent history of incisional hernia repair Possible postsurgical hematoma versus seroma history of gastric sleeve surgery complicated with incisional hernia Morbid obesity with BMI of 44.4 Plan: this is a pleasant 45 years old female who presents with UTI, pyelonephritis and left hydronephrosis. Continue with ceftriaxone and normal saline. Infectious Disease consult Urology team consult Labs and medication were reviewed.. Continue same treatment. Continue with symptomatic treatment. Resume home medication. Monitor lytes and vitals. DVT and GI prophylaxis. Further recommendations depends on the clinical course of the patient DVT prophylaxis: Subcutaneous heparin GI Prophylaxis: Pepcid
[2021-01-12] MEDS: THIAMINE 100 MG/ML 2 ML VIAL IVP SCH (11:52)
[2021-01-12] MEDS: OXYBUTYNIN 10 MG TAB.ER.24 PO SCH (11:53)
--- NOTE | 2021-01-12 12:31 | P.PN ---
Progress Note - Text Progress Note Date: 01/12/21 POD #1 S/P left stent placement, no acute overnight event. Urine is clear. BP stable, she is off Levophed this am. Having bothersome stent spasms -Continue IV abx -Will start Ditropan 10 mg xL for spasms -Will setup for outpatient ureteroscopy to address her stone -Patel can be removed once patient is transferred outo of the ICU
--- NOTE | 2021-01-12 13:43 | PN ---
PROGRESS NOTE DATE OF SERVICE: 01/12/2021 REASON FOR FOLLOW UP: E coli UTI and bacteremia. INTERVAL HISTORY: The patient is afebrile. the patient denies having any chest pain. No shortness of breath or cough. Pain to the left leg has slightly decreased. No vomiting or diarrhea. PHYSICAL EXAMINATION: Blood pressure is 91/58 with a pulse of 99. Temperature 98. She is 96% on 8 L high flow oxygen. General description is a pleasant female lying in bed in no distress. Respiratory system: Unlabored breathing, decreased breath sounds in the bases. No wheeze. Heart S1, S2. Regular rate and rhythm. Abdomen soft, no tenderness. LABS: Hemoglobin 13, white 8.4, BUN of 51, creatinine 0.87. DIAGNOSTIC IMPRESSION AND PLAN: Patient with E coli urinary tract infection with bacteremia, status post cystoscopy and ureteral stent placement. Antibiotic adjusted to Rocephin 2 grams daily sensitive pathogen. Monitor clinical course closely. MMODL / IJN: [id number] /
--- NOTE | 2021-01-12 17:29 | P.PN ---
Subjective Progress Note Date: 01/12/21 01/12/2021, the patient is feeling better. She is much more awake and alert compared to yesterday. She is still having some pain in her left flank. She was aggressively resuscitated with IV fluids and she was placed on a low-dose norepinephrine infusion for hemodynamic support which is running at 0.05 microvascular kilogram per minute. E. coli was found in the urine and in the blood. The patient was switched IV Rocephin. She is producing adequate amount of urine output. She is afebrile. The white cell count remains elevated at 18.4. Hemoglobin is at 13.0. Normal renal function. Normal electrolytes. The lactic acid level dropped down to 2.0. Otherwise, no other significant events. She is going to gradually increase his intake as tolerated. Surgical wound site over the anterior abdominal area is dry clean and intact. Cultures from the seroma that was obtained earlier came back negative for any microbial growth. Objective - Vital Signs Vital signs: Vital Signs Temp 98.0 F 01/12/21 12:00 Pulse 103 H 01/12/21 17:15 Resp 18 01/12/21 17:15 BP 97/66 01/12/21 17:15 Pulse Ox 97 01/12/21 17:15 Intake & Output 01/11/21 01/12/21 01/12/21 18:59 06:59 18:59 Intake Total 432.52 2019.108 2343.885 Output Total 250 950 885 Balance 182.52 5147.258 1750.885 Weight 110.223 kg Intake: IV 430 1760 2300 Cefepime 2 gm In Sodium 100 Chloride 0.9% 100 ml @ 25 mls/hr IVPB Q8HR [facility] Rx# :[id number] Piperacillin-Tazobactam 3 100 .375 gm In Sodium Chloride 0.9% 100 ml @ 25 mls/hr IVPB Q8H [facility] Rx#: [id number] Sodium Chloride 0.9% 1, 130 1560 1300 000 ml @ 130 mls/hr IV . Q7H42M [facility] Rx#:[id number] Sodium Chloride 0.9% 1, 1000 000 ml @ 999 mls/hr IV . Q1H1M [facility] Rx#:[id number] Intake, IV Titration 2.52 259.108 43.885 Amount Norepinephrine 4 mg In 2.52 259.108 43.885 Sodium Chloride 0.9% 250 ml @ 0.05 MCG/KG/MIN 20. 997 mls/hr IV .Q12H6M [facility] Rx#:[id number] Output: Urine 250 950 885 Estimated Blood Loss 0 Other: Voiding Method Bedpan Indwelling Catheter - Exam Gen. appearance, the patient is calm and comfortable nonacute distress. Head exam was generally normal. There was no scleral icterus or corneal arcus. Mucous membranes were moist. Neck was supple and without jugular venous distension, thyromegaly, or carotid bruits. Carotids were easily palpable bilaterally. There was no adenopathy. Lungs were clear to auscultation and percussion, and with normal diaphragmatic excursion. No wheezes or rales were noted. Cardiac exam revealed the PMI to be normally situated and sized. The rhythm was regular and no extrasystoles were noted during several minutes of auscultation. The first and second heart sounds were normal and physiologic splitting of the second heart sound was noted. There were no murmurs, rubs, clicks, or gallops. Abdomen is soft nontender. There is no cellulitis and there is a soft fluid collection at the incision site from the previous bariatric surgery. No direct tenderness. No rebound tenderness no guarding. Overall abdominal examination is soft. Examination of the extremities revealed easily palpable radial, femoral and pedal pulses. There was no cyanosis, clubbing or edema. Examination of the skin revealed no evidence of significant rashes, suspicious appearing nevi or other concerning lesions. Neurologically, the patient is awake and alert and the patient does not have any focal neurological deficit. Cranial nerves are essentially intact. - Labs CBC & Chem 7: 01/12/21 03:54 01/12/21 03:54 Labs: Abnormal Lab Results - Last 24 Hours (Table) 01/12/21 01/12/21 Range/Units 03:54 03:54 WBC 18.4 H (3.8-10.6) k/uL Plt Count 120 L (150-450) k/uL Neutrophils # (Manual) 16.50 H (1.3-7.7) k/uL Lymphocytes # (Manual) 0.92 L (1.0-4.8) k/uL Chloride 112 H (98-107) mmol/L Carbon Dioxide 21 L (22-30) mmol/L BUN 21 H (7-17) mg/dL Glucose 112 H (74-99) mg/dL Calcium 7.3 L (8.4-10.2) mg/dL Magnesium 1.3 L (1.6-2.3) mg/dL Microbiology - Last 24 Hours (Table) 01/11/21 07:28 Blood Culture Gram Stain - Preliminary Blood Blood Culture - Preliminary Escherichia coli 01/11/21 08:00 Urine Culture - Preliminary Urine,Voided Gram Neg Bacilli 01/11/21 12:00 Urine Culture - Preliminary Urine,Catheterized 01/11/21 16:46 Wound Culture - Preliminary Other - Other 01/11/21 16:46 Anaerobic Culture - Preliminary Other - Other 01/11/21 07:28 Blood Culture - Preliminary Blood No Growth after 24 hours 01/11/21 07:28 Blood Culture - Final Blood Assessment and Plan Plan: 1 sepsis secondary to UTI/pyelonephritis. The patient presented to us with a obstructive uropathy and a distal ureteral stone measuring 6 mm in size and the patient hydronephrosis, underwent emergent cystoscopy and ureteral stent insertion. Currently on IV antibiotics Rocephin for E. coli sepsis as the patient was found to have E. coli in the blood in the urine. Patient is currently on low-dose pressors. 2 lactic acidosis secondary to above 3 nephrolithiasis 4 obesity with a BMI of 44.4 5 surgical seroma following a abdominal wall hernia repair. The fluid collection/seroma was drained, awaiting cultures. No surrounding cellulitis. Surgical wound site is dry clean and intact. 6 Bariatric surgery/gastric sleeve in 2013 7 leukocytosis, white blood count of 18.4 Plan Continue IV fluids with normal saline today to 130s's an hour Urine cultures and blood culturesHave been checked and the patient is found to have E. coli septicemia Urology follow-up Monitor the lactic acid level, Levels are improved Continue with I Rocephin 2 g every 24 hours Pressor to maintain a mean arterial pressure above 65 Keep the patient in the intensive care unit for now We'll continue to follow
[2021-01-12] MEDS: ONDANSETRON 4 MG/2 ML VIAL IVP PRN (17:36)
[2021-01-12] MEDS: VENLAFAXINE HCL ER 75 MG CAP PO SCH (17:50)
[2021-01-13] MEDS: HYDROmorphone 1 MG/ML 1 ML SYRINGE IVP PRN ×5 (00:31→19:06)
[2021-01-13 07:08] LABS: HCT 32.9 % (34.0-46.0); HGB 10.8 gm/dL (11.4-16.0); MCH 31.2 pg (25.0-35.0); MCV 94.5 fL (80.0-100.0); Mean Platelet Volume 9.6; Platelet Count 102 k/uL (150-450); RBC 3.48 m/uL (3.80-5.40); RDW 13.4 % (11.5-15.5); WBC 15.4 k/uL (3.8-10.6)
[2021-01-13 07:36] LABS: African American GFR (CKD) >90 (>60 ml/min/1.73 sqM); Anion Gap 6 mmol/L; Blood Urea Nitrogen 13 mg/dL (7-17); Calcium 6.9 mg/dL (8.4-10.2); Carbon Dioxide 22 mmol/L (22-30); Chloride 110 mmol/L (98-107); Glucose 81 mg/dL (74-99); Non-African American GFR(CKD) >90 (>60 ml/min/1.73 sqM); Potassium 4.2 mmol/L (3.5-5.1); Sodium 138 mmol/L (137-145)
[2021-01-13] MEDS: NOREPINEPHRINE 4 MG in SODIUM CHLORIDE 0.9% 250 ML IV SCH (08:05)
[2021-01-13] MEDS: FAMOTIDINE 20 MG/2 ML VIAL IV SCH ×2 (08:12→20:09)
[2021-01-13] MEDS: HEPARIN SODIUM,PORCINE/PF 5,000 UNIT/0.5 ML SYRINGE SQ SCH ×2 (08:12→20:09)
[2021-01-13] MEDS: VENLAFAXINE HCL ER 75 MG CAP PO SCH (08:13)
[2021-01-13] MEDS: OXYBUTYNIN 10 MG TAB.ER.24 PO SCH (08:13)
[2021-01-13] MEDS: THIAMINE 100 MG/ML 2 ML VIAL IVP SCH (08:13)
--- NOTE | 2021-01-13 10:27 | P.PN ---
Subjective Progress Note Date: 01/13/21 Principal diagnosis: Septic shock, urinary tract infection, gram-negative bacteremia Today's evaluation on 01/13/2001 patient seen in follow-up in the intensive care unit, she is resting comfortably in bed, denies any acute distress other than some mild soreness over left flank area which has improved since admission overall, breathing comfortably, she is on 3 L of oxygen and her pulse ox is 83- 96%, afebrile, hemodynamically stable, her vasopressors have been off since yesterday morning, she is getting up to the bathroom and voiding. She still reports her urine being somewhat dark. Continues on 0.9 normal saline at a rate of 150 ML per hour, she is tolerating oral intake, no nausea vomiting or diarrhea, is on Rocephin for E. coli in the blood and urine cultures cultures showed no growth at the 24-hour arely, today's labs have been reviewed showing improving white count down to 15.4 from 18.4, hemoglobin is 10.8, sodium is 1:30, potassium 4.2, chloride is 110, CO2 is 22 and today's labs, BUN is 13, creatinine 0.6. Her lactic acid yesterday was down to 2.0. Nursing adequate amount of urine. Tolerating oral intake. No acute events overnight. Objective - Vital Signs Vital signs: Vital Signs Temp 98.4 F 01/13/21 08:00 Pulse 98 01/13/21 09:00 Resp 14 01/13/21 09:00 BP 103/63 01/13/21 09:00 Pulse Ox 93 L 01/13/21 09:00 Intake & Output 01/12/21 01/13/21 01/13/21 18:59 06:59 18:59 Intake Total 2473.885 2520 720 Output Total 885 1050 0 Balance 8304.507 6295 720 Intake: IV 2430 1560 440 Sodium Chloride 0.9% 1, 1430 1560 390 000 ml @ 130 mls/hr IV . Q7H42M [facility] Rx#:[id number] Sodium Chloride 0.9% 1, 1000 000 ml @ 999 mls/hr IV . Q1H1M [facility] Rx#:[id number] cefTRIAXone 2 gm In 50 Sodium Chloride 0.9% 50 ml @ 100 mls/hr IVPB Q24HR [facility] Rx#:[id number] Intake, IV Titration 43.885 Amount Norepinephrine 4 mg In 43.885 Sodium Chloride 0.9% 250 ml @ 0.05 MCG/KG/MIN 20. 997 mls/hr IV .Q12H6M [facility] Rx#:[id number] Oral 960 280 Output: Urine 885 1050 0 Other: Voiding Method Indwelling Catheter Indwelling Catheter Bedside Commode # Voids 1 0 - Exam GENERAL EXAM: Alert, pleasant, 45-year-old white female, on 3 L of oxygen pulse ox is 92-96%, resting comfortably in the bed in the intensive care unit comfortable in no apparent distress. HEAD: Normocephalic/atraumatic. EYES: Normal reaction of pupils, equal size. Conjunctiva pink, sclera white. NOSE: Clear with pink turbinates. THROAT: No erythema or exudates. NECK: No masses, no JVD, no thyroid enlargement, no adenopathy. CHEST: No chest wall deformity. Symmetrical expansion. LUNGS: Equal air entry with no crackles, wheeze, rhonchi or dullness. CVS: Regular rate and rhythm, normal S1 and S2, no gallops, no murmurs, no rubs ABDOMEN: Soft, nontender. No hepatosplenomegaly, normal bowel sounds, no guarding or rigidity. EXTREMITIES: No clubbing, no edema, no cyanosis, 2+ pulses and upper and lower extremities. MUSCULOSKELETAL: Muscle strength and tone normal. SPINE: No scoliosis or deformity SKIN: No rashes CENTRAL NERVOUS SYSTEM: Alert and oriented -3. No focal deficits, tone is normal in all 4 extremities. PSYCHIATRIC: Alert and oriented -3. Appropriate affect. Intact judgment and insight. - Labs CBC & Chem 7: 01/13/21 06:51 01/13/21 06:51 Labs: Abnormal Lab Results - Last 24 Hours (Table) 01/13/21 01/13/21 Range/Units 06:51 06:51 WBC 15.4 H (3.8-10.6) k/uL RBC 3.48 L (3.80-5.40) m/uL Hgb 10.8 L (11.4-16.0) gm/dL Hct 32.9 L (34.0-46.0) % Plt Count 102 L (150-450) k/uL Chloride 110 H (98-107) mmol/L Calcium 6.9 L (8.4-10.2) mg/dL Microbiology - Last 24 Hours (Table) 01/11/21 07:28 Blood Culture - Preliminary Blood No Growth after 48 hours 01/11/21 08:00 Urine Culture - Final Urine,Voided Escherichia coli 01/11/21 16:46 Gram Stain - Preliminary Other - Other Wound Culture - Preliminary 01/12/21 03:54 Blood Culture - Preliminary Blood No Growth after 24 hours 01/11/21 07:28 Blood Culture Gram Stain - Preliminary Blood Blood Culture - Preliminary Escherichia coli 01/11/21 12:00 Urine Culture - Preliminary Urine,Catheterized 01/11/21 16:46 Anaerobic Culture - Preliminary Other - Other Assessment and Plan Plan: Assessment: #1. Sepsis secondary to UTI/pyelonephritis. The patient presented to us with a obstructive uropathy and a distal ureteral stone measuring 6 mm in size and the patient hydronephrosis, underwent emergent cystoscopy and ureteral stent insertion. Currently on IV antibiotics Rocephin for E. coli sepsis as the patient was found to have E. coli in the blood in the urine. Patient is currently on low-dose pressors. #2. Lactic acidosis secondary to above #3. Nephrolithiasis #4. Obesity with a BMI of 44.4 #5. Surgical seroma following a abdominal wall hernia repair. The fluid collection/seroma was drained, awaiting cultures. No surrounding cellulitis. Surgical wound site is dry clean and intact. #6. Bariatric surgery/gastric sleeve in 2013 #7. Leukocytosis, white blood count of 18.4, improving Plan: Hemodynamically patient is stable Off vasopressor support Continue same antibiotics, patient is currently on Rocephin for E. coli in the urine and blood cultures Follow blood cultures remain negative No fever or chills Increase activity as tolerated Cut back IV fluids to 40 ML per hour Patient is tolerating oral intake Incentive spirometry to the bedside Stable for transfer out of intensive care unit today to general medical floor I performed a history & physical examination of the patient and discussed their management with my nurse practitioner, Princess Acosta. I reviewed the nurse practitioner's note and agree with the documented findings and plan of care. Lung sounds are positive for diminished breath sounds throughout the lung dominguez. The findings and the impression was discussed with the patient. I attest to the documentation by the nurse practitioner. Time with Patient: Less than 30
--- NOTE | 2021-01-13 11:52 | P.PN ---
Subjective This is a pleasant 45 years old female with past medical history of hysterectomy, kidney stone and she follows up with Dr. Mireles many years ago, hist ory of gastric sleeve surgery complicated by incisional hernia status post hernia repair done by Dr. fletcher last Sunday. Presents this time because of left abdominal pain with fever that started yesterday, pain is radiating from her left lower back into the left flank area, felt like sharp moderate to severe in the quantity about 10/10, currently is 7/10 with pain medication. She denies any dysuria or urgency but she notices she's been less than usual. She has kidney stone status post lithotripsy done with Dr. Mireles many years ago. Smoking or illicit drugs but she drinks alcohol leak or every day and could not specify all marked On admission she is febrile with 101.4. Restoril vitals are stable however she is tachycardic with heart rate 100-118. CBC is unremarkable as well as CBC and liver enzymes mildly elevated with AST 48 and ALT 40. Lactic acid is elevated at 3.3, and 3.0. Urinalysis is positive for nitrite. Coronavirus not detected. CT of the abdomen and pelvis with contrast: Moderate to severe left-sided hydronephrosis with delayed excretion secondary to 5-6 mm proximal left ureteral calculus Also there is some thin walled loculated fluid collection adjacent to her surg ical wound favor postsurgical seroma with a small blood component or hematoma In the emergency room patient received 1 dose of Rocephin and gentamicin. Urologist has been contacted by ENT team. We are asked for infectious disease consult recommended Zosyn was started for the patient. Also she is on normal saline at 1 30 mL/h Liver enzymes trending down 01/12/2021 Patient yesterday developed low blood pressure and tachycardia with tachypnea with redrape wasn't 30s and 40s, she received 4 L of normal saline and then she was transferred to the ICU where she needed small dose of levophed. Urologist evaluated the patient urgently and she underwent cystoscopy with left ureteral stent placement. This morning she is fully awake and oriented and she feels little better. She still have some lower abdominal pain and tenderness, no maurisio urinary symptoms. She is still little hypotensive with blood pressure 85/62, breathing rate is better 15-18 and she is an 8 liters per minute oxygen. Active fever yesterday of 102.9. Labs show leukocytosis of 18 Urine culture is growing E. coli sensitive to many antibiotics and discharged to ceftriaxone 2 g daily today She's also normal saline at 130 mL/h 01/13/2021 All vitals are improving. Her blood pressure is stable off pressors. Blood pressure is 104/71. No fever for the last 48 hours. She is on 3 L oxygen. She still have some pain at the left lower abdomen which is expected. Blood culture is positive no for E. coli which most likely the source is from UTI which also going same microorganism in UC. Leukocytosis trending down to 15 K, hemoglobin slightly low at 10.8. She remains on ceftriaxone 2 g daily and normal saline at 40 mL per hour Objective - Vital Signs Vital signs: Vital Signs Temp 98.4 F 01/13/21 08:00 Pulse 90 01/13/21 10:00 Resp 23 01/13/21 10:00 BP 104/71 01/13/21 10:00 Pulse Ox 94 L 01/13/21 10:00 Intake & Output 01/12/21 01/13/21 01/13/21 18:59 06:59 18:59 Intake Total 2473.885 2520 860 Output Total 885 1050 0 Balance 4597.410 6964 860 Intake: IV 2430 1560 480 Sodium Chloride 0.9% 1, 1430 1560 430 000 ml @ 40 mls/hr IV . Q24H [facility] Rx#:[id number] Sodium Chloride 0.9% 1, 1000 000 ml @ 999 mls/hr IV . Q1H1M [facility] Rx#:[id number] cefTRIAXone 2 gm In 50 Sodium Chloride 0.9% 50 ml @ 100 mls/hr IVPB Q24HR [facility] Rx#:[id number] Intake, IV Titration 43.885 Amount Norepinephrine 4 mg In 43.885 Sodium Chloride 0.9% 250 ml @ 0.05 MCG/KG/MIN 20. 997 mls/hr IV .Q12H6M [facility] Rx#:[id number] Oral 960 380 Output: Urine 885 1050 0 Other: Voiding Method Indwelling Catheter Indwelling Catheter Bedside Commode # Voids 1 0 - Exam GENERAL: The patient is alert and oriented x3, not in any acute distress. Well developed, well nourished. HEENT: Pupils are round and equally reacting to light. EOMI. No scleral icterus. No conjunctival pallor. Normocephalic, atraumatic. No pharyngeal erythema. No thyromegaly. CARDIOVASCULAR: S1 and S2 present. No murmurs, rubs, or gallops. PULMONARY: Chest is clear to auscultation, no wheezing or crackles. -ABDOMEN: Soft, lower abdominal tenderness, nondistended, normoactive bowel sounds. No palpable organomegaly. MUSCULOSKELETAL: No joint swelling or deformity. EXTREMITIES: No cyanosis, clubbing, or pedal edema. NEUROLOGICAL: Gross neurological examination did not reveal any focal deficits. SKIN: No rashes. no petechiae. - Labs CBC & Chem 7: 01/13/21 06:51 01/13/21 06:51 Labs: Abnormal Lab Results - Last 24 Hours (Table) 01/13/21 01/13/21 Range/Units 06:51 06:51 WBC 15.4 H (3.8-10.6) k/uL RBC 3.48 L (3.80-5.40) m/uL Hgb 10.8 L (11.4-16.0) gm/dL Hct 32.9 L (34.0-46.0) % Plt Count 102 L (150-450) k/uL Chloride 110 H (98-107) mmol/L Calcium 6.9 L (8.4-10.2) mg/dL Microbiology - Last 24 Hours (Table) 01/11/21 16:46 Gram Stain - Preliminary Other - Other Wound Culture - Preliminary 01/11/21 07:28 Blood Culture - Preliminary Blood No Growth after 48 hours 01/11/21 08:00 Urine Culture - Final Urine,Voided Escherichia coli 01/12/21 03:54 Blood Culture - Preliminary Blood No Growth after 24 hours 01/11/21 07:28 Blood Culture Gram Stain - Preliminary Blood Blood Culture - Preliminary Escherichia coli 01/11/21 12:00 Urine Culture - Preliminary Urine,Catheterized 01/11/21 16:46 Anaerobic Culture - Preliminary Other - Other Assessment and Plan Assessment: Acute urinary tract infection with left sided hydronephrosis. Secondary to E. coli Severe sepsis with septic shock, improved with fever and tachycardia secondary to above mild to severe left-sided hydronephrosis secondary to 5-6 mm kidney stone on the proximal ureter . Status post cystoscopy and stent placement in the left ureter on 01/11 recent history of incisional hernia repair Possible postsurgical hematoma versus seroma history of gastric sleeve surgery complicated with incisional hernia Morbid obesity with BMI of 44.4 Plan: this is a pleasant 45 years old female who presents with UTI, pyelonephritis and left hydronephrosis. Continue with ceftriaxone and normal saline. Infectious Disease consult Urology team consult Labs and medication were reviewed.. Continue same treatment. Continue with symptomatic treatment. Resume home medication. Monitor lytes and vitals. DVT and GI prophylaxis. Further recommendations depends on the clinical course of the patient DVT prophylaxis: Subcutaneous heparin GI Prophylaxis: Pepcid
[2021-01-13] MEDS: SODIUM CHLORIDE 0.9% 1,000 ML IV SCH (15:18)
--- NOTE | 2021-01-13 16:08 | PN ---
PROGRESS NOTE DATE OF SERVICE: 01/13/2021. REASON FOR FOLLOW UP: E coli, complicated urinary tract infection. INTERVAL HISTORY: The patient is afebrile. The patient is breathing comfortably. The patient denies having any chest pain, shortness of breath or cough. No nausea, no vomiting. No abdominal pain. No diarrhea. PHYSICAL EXAMINATION: Blood pressure 115/88 with a pulse of 83, temperature of 98.4. She is 94% on 2 L nasal cannula. General description is a middle-aged female lying in bed in no distress. Respiratory system: Unlabored breathing. Clear to auscultation anteriorly. Heart S1, S2. Regular rate and rhythm. Abdomen soft, no tenderness. ABDOMEN: Soft. No tenderness. LABS: Hemoglobin is 10.1, white count 15.4, BUN of 13, creatinine 0.66. DIAGNOSTIC IMPRESSION AND PLAN: Patient with E coli complicated urinary tract infection in this patient who status post cystoscopy and ureteral stent placement. Patient is covered with Rocephin that will be continued for now and monitor clinical course closely. MMODL / IJN: [id number] /
[2021-01-13] MEDS: ONDANSETRON 4 MG/2 ML VIAL IVP PRN (19:06)
[2021-01-14] MEDS: HYDROmorphone 1 MG/ML 1 ML SYRINGE IVP PRN ×5 (01:25→21:16)
[2021-01-14 06:37] LABS: Glucose,Whole Blood 72 mg/dL (75-99)
--- NOTE | 2021-01-14 08:27 | P.PN ---
Subjective Progress Note Date: 01/14/21 The patient underwent left ureteral stenting for an obstructing ureteral stone on the left side, 6 mm proximal. She had pyonephrosis, urinary tract infection with sepsis. She has recuperated reasonably well. She still full some a week. From urologic standpoint I will not do anything for another week or 2. When she recuperates we'll do cystoscopy stent and stone removal. This is been discussed with the patient. Objective - Vital Signs Vital signs: Vital Signs Temp 99.6 F 01/14/21 07:23 Pulse 85 01/14/21 07:23 Resp 20 01/14/21 07:23 BP 133/86 01/14/21 07:23 Pulse Ox 96 01/14/21 08:08 Intake & Output 01/13/21 01/14/21 01/14/21 18:59 06:59 18:59 Intake Total 960 Output Total 800 Balance 160 Intake: IV 480 Sodium Chloride 0.9% 1, 430 000 ml @ 40 mls/hr IV . Q24H [facility] Rx#:[id number] cefTRIAXone 2 gm In 50 Sodium Chloride 0.9% 50 ml @ 100 mls/hr IVPB Q24HR [facility] Rx#:[id number] Oral 480 Output: Urine 800 Other: Voiding Method Bedside Commode Bedside Commode # Voids 0 - Labs CBC & Chem 7: 01/13/21 06:51 01/13/21 06:51 Labs: Abnormal Lab Results - Last 24 Hours (Table) 01/14/21 Range/Units 06:35 POC Glucose (mg/dL) 72 L (75-99) mg/dL Microbiology - Last 24 Hours (Table) 01/12/21 03:54 Blood Culture - Preliminary Blood No Growth after 48 hours 01/11/21 07:28 Blood Culture Gram Stain - Final Blood Blood Culture - Final Escherichia coli 01/11/21 12:00 Urine Culture - Final Urine,Catheterized 01/11/21 16:46 Gram Stain - Preliminary Other - Other Wound Culture - Preliminary 01/11/21 07:28 Blood Culture - Preliminary Blood No Growth after 48 hours 01/11/21 08:00 Urine Culture - Final Urine,Voided Escherichia coli
--- NOTE | 2021-01-14 08:43 | P.PN ---
Progress Note - Text Progress Note Date: 01/14/21 The cultures from the patients seroma have been no growth. Will follow up in the office in 1-2 weeks. Please notify me if anything changes with her umbilical incision
[2021-01-14] MEDS: HEPARIN SODIUM,PORCINE/PF 5,000 UNIT/0.5 ML SYRINGE SQ SCH ×2 (10:10→21:15)
[2021-01-14] MEDS: HYDROcodone/APAP 7.5-325MG 1 EACH TAB PO PRN ×2 (10:13→17:31)
[2021-01-14] MEDS: VENLAFAXINE HCL ER 75 MG CAP PO SCH (10:14)
[2021-01-14] MEDS: FAMOTIDINE 20 MG/2 ML VIAL IV SCH ×2 (10:20→21:18)
[2021-01-14 11:39] LABS: HCT 34.4 % (37.2-46.3); MCH 29.6 pg (27.0-32.0); MCV 92.7 fL (80.0-97.0); Mean Platelet Volume 11.1 fL (9.5-12.2); Platelet Count 150 X 10*3/uL (140-440); RBC 3.71 X 10*6/uL (4.10-5.20); RDW 13.5 % (11.5-14.5); WBC 14.15 X 10*3/uL (4.50-10.00)
[2021-01-14] MEDS: THIAMINE 100 MG/ML 2 ML VIAL IVP SCH (12:03)
[2021-01-14] MEDS: OXYBUTYNIN 10 MG TAB.ER.24 PO SCH (12:03)
--- NOTE | 2021-01-14 12:34 | P.PN ---
Subjective This is a pleasant 45 years old female with past medical history of hysterectomy, kidney stone and she follows up with Dr. Mireles many years ago, hist ory of gastric sleeve surgery complicated by incisional hernia status post hernia repair done by Dr. fletcher last Sunday. Presents this time because of left abdominal pain with fever that started yesterday, pain is radiating from her left lower back into the left flank area, felt like sharp moderate to severe in the quantity about 10/10, currently is 7/10 with pain medication. She denies any dysuria or urgency but she notices she's been less than usual. She has kidney stone status post lithotripsy done with Dr. Mireles many years ago. Smoking or illicit drugs but she drinks alcohol leak or every day and could not specify all marked On admission she is febrile with 101.4. Restoril vitals are stable however she is tachycardic with heart rate 100-118. CBC is unremarkable as well as CBC and liver enzymes mildly elevated with AST 48 and ALT 40. Lactic acid is elevated at 3.3, and 3.0. Urinalysis is positive for nitrite. Coronavirus not detected. CT of the abdomen and pelvis with contrast: Moderate to severe left-sided hydronephrosis with delayed excretion secondary to 5-6 mm proximal left ureteral calculus Also there is some thin walled loculated fluid collection adjacent to her surg ical wound favor postsurgical seroma with a small blood component or hematoma In the emergency room patient received 1 dose of Rocephin and gentamicin. Urologist has been contacted by ENT team. We are asked for infectious disease consult recommended Zosyn was started for the patient. Also she is on normal saline at 1 30 mL/h Liver enzymes trending down 01/12/2021 Patient yesterday developed low blood pressure and tachycardia with tachypnea with redrape wasn't 30s and 40s, she received 4 L of normal saline and then she was transferred to the ICU where she needed small dose of levophed. Urologist evaluated the patient urgently and she underwent cystoscopy with left ureteral stent placement. This morning she is fully awake and oriented and she feels little better. She still have some lower abdominal pain and tenderness, no maurisio urinary symptoms. She is still little hypotensive with blood pressure 85/62, breathing rate is better 15-18 and she is an 8 liters per minute oxygen. Active fever yesterday of 102.9. Labs show leukocytosis of 18 Urine culture is growing E. coli sensitive to many antibiotics and discharged to ceftriaxone 2 g daily today She's also normal saline at 130 mL/h 01/13/2021 All vitals are improving. Her blood pressure is stable off pressors. Blood pressure is 104/71. No fever for the last 48 hours. She is on 3 L oxygen. She still have some pain at the left lower abdomen which is expected. Blood culture is positive no for E. coli which most likely the source is from UTI which also going same microorganism in UC. Leukocytosis trending down to 15 K, hemoglobin slightly low at 10.8. She remains on ceftriaxone 2 g daily and normal saline at 40 mL per hour 01/14/2021 Patient improving gradually, she still have some left costovertebral angle pain and tenderness, but improving. No nausea vomiting. She still feels generally weak. She is hemodynamically stable, she is saturating 96% on 2 L oxygen via nasal cannula. She had low-grade Temperature yesterday at 99.7. WBC is trending down to 14.1. Hemoglobin is a stable she continued on normal saline at 40 mL/h and ceftriaxone Dr. Fletcher surgeon and Dr. Mireles urologist there want her to follow up in 1-2 weeks upon discharge Objective - Vital Signs Vital signs: Vital Signs Temp 99.6 F 01/14/21 07:23 Pulse 85 01/14/21 07:23 Resp 20 01/14/21 07:23 BP 133/86 01/14/21 07:23 Pulse Ox 96 01/14/21 08:08 Intake & Output 01/13/21 01/14/21 01/14/21 18:59 06:59 18:59 Intake Total 960 Output Total 800 Balance 160 Intake: IV 480 Sodium Chloride 0.9% 1, 430 000 ml @ 40 mls/hr IV . Q24H [facility] Rx#:[id number] cefTRIAXone 2 gm In 50 Sodium Chloride 0.9% 50 ml @ 100 mls/hr IVPB Q24HR [facility] Rx#:[id number] Oral 480 Output: Urine 800 Other: Voiding Method Bedside Commode Bedside Commode # Voids 0 - Exam GENERAL: The patient is alert and oriented x3, not in any acute distress. Well developed, well nourished. HEENT: Pupils are round and equally reacting to light. EOMI. No scleral icterus. No conjunctival pallor. Normocephalic, atraumatic. No pharyngeal erythema. No thyromegaly. CARDIOVASCULAR: S1 and S2 present. No murmurs, rubs, or gallops. PULMONARY: Chest is clear to auscultation, no wheezing or crackles. -ABDOMEN: Soft, lower abdominal tenderness, nondistended, normoactive bowel sounds. No palpable organomegaly. MUSCULOSKELETAL: No joint swelling or deformity. EXTREMITIES: No cyanosis, clubbing, or pedal edema. NEUROLOGICAL: Gross neurological examination did not reveal any focal deficits. SKIN: No rashes. no petechiae. - Labs CBC & Chem 7: 01/14/21 06:16 01/13/21 06:51 Labs: Abnormal Lab Results - Last 24 Hours (Table) 01/14/21 01/14/21 Range/Units 06:16 06:35 WBC 14.15 H (4.50-10.00) X 10*3/uL RBC 3.71 L (4.10-5.20) X 10*6/uL Hgb 11.0 L (12.0-15.0) g/dL Hct 34.4 L (37.2-46.3) % POC Glucose (mg/dL) 72 L (75-99) mg/dL Microbiology - Last 24 Hours (Table) 01/11/21 07:28 Blood Culture - Preliminary Blood No Growth after 72 hours 01/11/21 16:46 Gram Stain - Final Other - Other Wound Culture - Final 01/12/21 03:54 Blood Culture - Preliminary Blood No Growth after 48 hours 01/11/21 07:28 Blood Culture Gram Stain - Final Blood Blood Culture - Final Escherichia coli 01/11/21 12:00 Urine Culture - Final Urine,Catheterized 01/11/21 08:00 Urine Culture - Final Urine,Voided Escherichia coli Assessment and Plan Assessment: Acute urinary tract infection with left sided hydronephrosis. Secondary to E. coli Severe sepsis with septic shock, improved with fever and tachycardia secondary to above mild to severe left-sided hydronephrosis secondary to 5-6 mm kidney stone on the proximal ureter . Status post cystoscopy and stent placement in the left ureter on 01/11 recent history of incisional hernia repair Possible postsurgical hematoma versus seroma history of gastric sleeve surgery complicated with incisional hernia Morbid obesity with BMI of 44.4 Plan: this is a pleasant 45 years old female who presents with UTI, pyelonephritis and left hydronephrosis. Continue with ceftriaxone and normal saline. Infectious Disease consult Urology team consult Labs and medication were reviewed.. Continue same treatment. Continue with symptomatic treatment. Resume home medication. Monitor lytes and vitals. DVT and GI prophylaxis. Further recommendations depends on the clinical course of the patient DVT prophylaxis: Subcutaneous heparin GI Prophylaxis: Pepcid
[2021-01-14 13:16] LABS: Basophils # (A) 0.07 X 10*3/uL (0.00-0.10); Basophils % (A) 0.5 %; Eosinophils # (A) 0.22 X 10*3/uL (0.04-0.35); Eosinophils % (A) 1.6 %; Lymphocytes # (A) 1.42 X 10*3/uL (0.90-5.00); Monocytes # (A) 0.66 X 10*3/uL (0.20-1.00); Monocytes % (A) 4.7 %; Neutrophils # (A) 11.71 X 10*3/uL (1.80-7.70); Neutrophils % (A) 82.7 %
--- NOTE | 2021-01-14 16:01 | PN ---
PROGRESS NOTE DATE OF SERVICE: 01/14/2021 REASON FOR FOLLOWUP: E coli UTI and bacteremia. INTERVAL HISTORY: The patient is afebrile. She is still complaining of pain to the left flank area; no worsening, though. No chest pain, shortness of breath or cough and no diarrhea. PHYSICAL EXAMINATION: Blood pressure 149/92 with a pulse of 85, temperature 98.6. She is 96% on 2 L nasal cannula. GENERAL DESCRIPTION: General description is a middle-aged female lying in bed in no distress. RESPIRATORY SYSTEM: Unlabored breathing. Clear to auscultation anteriorly. HEART: S1, S2. Regular rate and rhythm. ABDOMEN: Soft. No tenderness. LABS: Hemoglobin is 11, white count 8.15, creatinine 0.66. Blood culture repeat has been negative so far. DIAGNOSTIC IMPRESSION AND PLAN: Patient with Escherichia coli urinary tract infection complicated with secondary bacteremia in this patient who did have hydronephrosis and , status post cystoscopy and ureteral stent placement. Patient is covered with Rocephin; to continue. Transition to oral antibiotic on discharge. White count needs to be monitored closely. Continue with supportive care. MMODL / IJN: [id number] /
[2021-01-14 18:58] LABS: African American GFR (CKD) 126.7 (60.0-200.0); Anion Gap 12.1 mmol/L (4.00-12.00); Calcium 7.7 mg/dL (8.7-10.3); Carbon Dioxide 19.9 mmol/L (21.6-31.8); Non-African American GFR(CKD) 109.3 (60.0-200.0); Potassium 3.8 mmol/L (3.5-5.5)
[2021-01-14] MEDS: ALPRAZolam 0.25 MG TAB PO PRN (22:45)
[2021-01-15] MEDS: HYDROmorphone 1 MG/ML 1 ML SYRINGE IVP PRN ×5 (02:39→22:54)
[2021-01-15] MEDS: THIAMINE 100 MG/ML 2 ML VIAL IVP SCH (07:59)
[2021-01-15] MEDS: OXYBUTYNIN 10 MG TAB.ER.24 PO SCH (07:59)
[2021-01-15] MEDS: FAMOTIDINE 20 MG/2 ML VIAL IV SCH ×2 (08:03→19:34)
[2021-01-15] MEDS: HEPARIN SODIUM,PORCINE/PF 5,000 UNIT/0.5 ML SYRINGE SQ SCH ×2 (08:03→19:34)
[2021-01-15] MEDS: VENLAFAXINE HCL ER 75 MG CAP PO SCH (08:03)
--- NOTE | 2021-01-15 12:09 | P.PN ---
Subjective This is a pleasant 45 years old female with past medical history of hysterectomy, kidney stone and she follows up with Dr. Mireles many years ago, hist ory of gastric sleeve surgery complicated by incisional hernia status post hernia repair done by Dr. fletcher last Sunday. Presents this time because of left abdominal pain with fever that started yesterday, pain is radiating from her left lower back into the left flank area, felt like sharp moderate to severe in the quantity about 10/10, currently is 7/10 with pain medication. She denies any dysuria or urgency but she notices she's been less than usual. She has kidney stone status post lithotripsy done with Dr. Mireles many years ago. Smoking or illicit drugs but she drinks alcohol leak or every day and could not specify all marked On admission she is febrile with 101.4. Restoril vitals are stable however she is tachycardic with heart rate 100-118. CBC is unremarkable as well as CBC and liver enzymes mildly elevated with AST 48 and ALT 40. Lactic acid is elevated at 3.3, and 3.0. Urinalysis is positive for nitrite. Coronavirus not detected. CT of the abdomen and pelvis with contrast: Moderate to severe left-sided hydronephrosis with delayed excretion secondary to 5-6 mm proximal left ureteral calculus Also there is some thin walled loculated fluid collection adjacent to her surg ical wound favor postsurgical seroma with a small blood component or hematoma In the emergency room patient received 1 dose of Rocephin and gentamicin. Urologist has been contacted by ENT team. We are asked for infectious disease consult recommended Zosyn was started for the patient. Also she is on normal saline at 1 30 mL/h Liver enzymes trending down 01/12/2021 Patient yesterday developed low blood pressure and tachycardia with tachypnea with redrape wasn't 30s and 40s, she received 4 L of normal saline and then she was transferred to the ICU where she needed small dose of levophed. Urologist evaluated the patient urgently and she underwent cystoscopy with left ureteral stent placement. This morning she is fully awake and oriented and she feels little better. She still have some lower abdominal pain and tenderness, no maurisio urinary symptoms. She is still little hypotensive with blood pressure 85/62, breathing rate is better 15-18 and she is an 8 liters per minute oxygen. Active fever yesterday of 102.9. Labs show leukocytosis of 18 Urine culture is growing E. coli sensitive to many antibiotics and discharged to ceftriaxone 2 g daily today She's also normal saline at 130 mL/h 01/13/2021 All vitals are improving. Her blood pressure is stable off pressors. Blood pressure is 104/71. No fever for the last 48 hours. She is on 3 L oxygen. She still have some pain at the left lower abdomen which is expected. Blood culture is positive no for E. coli which most likely the source is from UTI which also going same microorganism in UC. Leukocytosis trending down to 15 K, hemoglobin slightly low at 10.8. She remains on ceftriaxone 2 g daily and normal saline at 40 mL per hour 01/14/2021 Patient improving gradually, she still have some left costovertebral angle pain and tenderness, but improving. No nausea vomiting. She still feels generally weak. She is hemodynamically stable, she is saturating 96% on 2 L oxygen via nasal cannula. She had low-grade Temperature yesterday at 99.7. WBC is trending down to 14.1. Hemoglobin is a stable she continued on normal saline at 40 mL/h and ceftriaxone Dr. Fletcher surgeon and Dr. Mireles urologist there want her to follow up in 1-2 weeks upon discharge 01/15/2021 Patient left flank and costovertebral angle pain and tenderness gradually trending down however is not resolving completely. They it is down to 7/10 most likely related related to retained stone. We'll need to follow-up with urologist as an outpatient in 1-2 weeks to repeat cystoscopy, stent and stone removal, formed and she agrees. Other than that she is hemodynamically stable. No labs today. She remains on Rocephin 2 g daily based on her positive urine or blood culture for E. coli. Patient needs to follow-up with Dr. Lin in 1-2 weeks and patient is aware Objective - Vital Signs Vital signs: Vital Signs Temp 97.7 F 01/15/21 07:51 Pulse 82 01/15/21 07:51 Resp 17 01/15/21 07:51 BP 125/87 01/15/21 07:51 Pulse Ox 94 L 01/15/21 07:51 Intake & Output 01/14/21 01/15/21 01/15/21 18:59 06:59 18:59 Other: Voiding Method Bedside Commode Bedside Commode # Voids 3 - Exam GENERAL: The patient is alert and oriented x3, not in any acute distress. Well developed, well nourished. HEENT: Pupils are round and equally reacting to light. EOMI. No scleral icterus. No conjunctival pallor. Normocephalic, atraumatic. No pharyngeal erythema. No thyromegaly. CARDIOVASCULAR: S1 and S2 present. No murmurs, rubs, or gallops. PULMONARY: Chest is clear to auscultation, no wheezing or crackles. -ABDOMEN: Soft, lower abdominal tenderness, nondistended, normoactive bowel sounds. No palpable organomegaly. MUSCULOSKELETAL: No joint swelling or deformity. EXTREMITIES: No cyanosis, clubbing, or pedal edema. NEUROLOGICAL: Gross neurological examination did not reveal any focal deficits. SKIN: No rashes. no petechiae. - Labs CBC & Chem 7: 01/14/21 06:16 01/14/21 06:16 Labs: Abnormal Lab Results - Last 24 Hours (Table) 01/14/21 01/14/21 Range/Units 06:16 06:16 Immature Gran # 0.07 H (0.00-0.04) X 10*3/uL Neutrophils # 11.71 H (1.80-7.70) X 10*3/uL Carbon Dioxide 19.9 L (21.6-31.8) mmol/L Anion Gap 12.10 H (4.00-12.00) mmol/L Glucose 56 L (70-110) mg/dL Calcium 7.7 L (8.7-10.3) mg/dL Microbiology - Last 24 Hours (Table) 01/11/21 07:28 Blood Culture - Preliminary Blood No Growth after 96 hours 01/12/21 03:54 Blood Culture - Preliminary Blood No Growth after 72 hours 01/11/21 16:46 Anaerobic Culture - Preliminary Other - Other 01/11/21 16:46 Gram Stain - Final Other - Other Wound Culture - Final Assessment and Plan Assessment: Acute urinary tract infection with left sided hydronephrosis. Secondary to E. coli Severe sepsis with septic shock, improved with fever and tachycardia secondary to above mild to severe left-sided hydronephrosis secondary to 5-6 mm kidney stone on the proximal ureter . Status post cystoscopy and stent placement in the left ureter on 01/11 recent history of incisional hernia repair Possible postsurgical hematoma versus seroma history of gastric sleeve surgery complicated with incisional hernia Morbid obesity with BMI of 44.4 Plan: this is a pleasant 45 years old female who presents with UTI, pyelonephritis and left hydronephrosis. Continue with ceftriaxone and normal saline. Infectious Disease consult Urology team consult Labs and medication were reviewed.. Continue same treatment. Continue with symptomatic treatment. Resume home medication. Monitor lytes and vitals. DVT and GI prophylaxis. Further recommendations depends on the clinical course of the patient DVT prophylaxis: Subcutaneous heparin GI Prophylaxis: Pepcid
[2021-01-16] MEDS: HYDROcodone/APAP 7.5-325MG 1 EACH TAB PO PRN ×2 (00:50→17:25)
--- NOTE | 2021-01-16 07:15 | PN ---
PROGRESS NOTE DATE OF SERVICE: 01/15/2021 REASON FOR FOLLOWUP: E. coli complicated urinary tract infection. INTERVAL HISTORY: Patient is afebrile. The patient is breathing comfortably. Still complaining of pain to the left flank area. Some nausea but no vomiting. No chest pain, shortness of breath or cough. PHYSICAL EXAMINATION: Her vital signs are stable. General description is a middle-aged female lying in bed in no distress. Respiratory system: Unlabored breathing. Clear to auscultation anteriorly. Heart S1, S2. Regular rate and rhythm. Abdomen soft, no tenderness. LABS: No new labs have been obtained today. DIAGNOSTIC IMPRESSION AND PLAN: Patient with E coli bacteremia secondary to complicated UTI. Status post cystoscopy and ureteral stent placement. Patient is covered with Rocephin to continue while waiting for the culture to finalize. Repeat inflammatory markers tomorrow. Continue supportive care. MMODL / IJN: [id number] /
[2021-01-16] MEDS: HEPARIN SODIUM,PORCINE/PF 5,000 UNIT/0.5 ML SYRINGE SQ SCH ×2 (08:43→20:14)
[2021-01-16] MEDS: HYDROmorphone 1 MG/ML 1 ML SYRINGE IVP PRN ×2 (08:44→11:18)
[2021-01-16] MEDS: THIAMINE 100 MG/ML 2 ML VIAL IVP SCH (08:47)
[2021-01-16] MEDS: FAMOTIDINE 20 MG/2 ML VIAL IV SCH ×2 (08:55→20:14)
[2021-01-16] MEDS: OXYBUTYNIN 10 MG TAB.ER.24 PO SCH (08:55)
[2021-01-16] MEDS: VENLAFAXINE HCL ER 75 MG CAP PO SCH (08:55)
[2021-01-16 11:12] LABS: African American GFR (CKD) >90 (>60 ml/min/1.73 sqM); Anion Gap 8 mmol/L; Blood Urea Nitrogen 11 mg/dL (7-17); C Reactive Protein 7.7 mg/dL (<1.0); Calcium 8.5 mg/dL (8.4-10.2); Carbon Dioxide 22 mmol/L (22-30); Chloride 106 mmol/L (98-107); Glucose 83 mg/dL (74-99); Non-African American GFR(CKD) >90 (>60 ml/min/1.73 sqM); Potassium 4.2 mmol/L (3.5-5.1); Sodium 136 mmol/L (137-145)
[2021-01-16 16:35] LABS: HCT 37.3 % (37.2-46.3); HGB 12.3 g/dL (12.0-15.0); MCH 29.6 pg (27.0-32.0); MCV 89.9 fL (80.0-97.0); Mean Platelet Volume 10.2 fL (9.5-12.2); Platelet Count 254 X 10*3/uL (140-440); RBC 4.15 X 10*6/uL (4.10-5.20); RDW 12.9 % (11.5-14.5); WBC 6.67 X 10*3/uL (4.50-10.00)
--- NOTE | 2021-01-16 16:59 | PN ---
PROGRESS NOTE DATE OF SERVICE: 01/16/2021 REASON FOR FOLLOWUP: E coli UTI and bacteremia secondary to complicated UTI. INTERVAL HISTORY: Patient is afebrile. The patient is breathing comfortably. Pain is currently controlled. No chest pain, shortness of breath or cough and no vomiting. No diarrhea. PHYSICAL EXAMINATION: Blood pressure 114/78 with a pulse of 73, temperature 98.2. She is 97% on room air. General description is a middle-aged female lying in bed in no distress. Respiratory system: Unlabored breathing, clear to auscultation anteriorly. Heart S1, S2. Regular rate and rhythm. Abdomen soft, no tenderness. LABS: No new labs have been obtained today. DIAGNOSTIC IMPRESSION AND PLAN: Patient with E coli urinary tract infection secondary to with bacteremia status post cystoscopy and ureteral stent placement. Patient is covered with Rocephin that will be transitioned to oral Cipro on discharge and close outpatient followup. MMODL / IJN: [id number] /
[2021-01-16 17:18] LABS: Basophils # (M) 0.13 X 10*3/uL (0.00-0.10); Eosinophils # (M) 0.33 X 10*3/uL (0.04-0.35); Lymphocytes # (M) 1.47 X 10*3/uL (0.90-5.00); Neutrophils # (M) 4.14 X 10*3/uL (2.00-8.90); Neutrophils % (M) 62 %
[2021-01-16] MEDS ORDERED: DOCUSATE 100 MG CAP PO PRN (17:26)
[2021-01-16] MEDS ORDERED: SENNOSIDES 8.6 MG TAB PO PRN (18:43)
--- NOTE | 2021-01-16 18:46 | P.PN ---
Subjective This is a pleasant 45 years old female with past medical history of hysterectomy, kidney stone and she follows up with Dr. Mireles many years ago, hist ory of gastric sleeve surgery complicated by incisional hernia status post hernia repair done by Dr. fletcher last Sunday. Presents this time because of left abdominal pain with fever that started yesterday, pain is radiating from her left lower back into the left flank area, felt like sharp moderate to severe in the quantity about 10/10, currently is 7/10 with pain medication. She denies any dysuria or urgency but she notices she's been less than usual. She has kidney stone status post lithotripsy done with Dr. Mireles many years ago. Smoking or illicit drugs but she drinks alcohol leak or every day and could not specify all marked On admission she is febrile with 101.4. Restoril vitals are stable however she is tachycardic with heart rate 100-118. CBC is unremarkable as well as CBC and liver enzymes mildly elevated with AST 48 and ALT 40. Lactic acid is elevated at 3.3, and 3.0. Urinalysis is positive for nitrite. Coronavirus not detected. CT of the abdomen and pelvis with contrast: Moderate to severe left-sided hydronephrosis with delayed excretion secondary to 5-6 mm proximal left ureteral calculus Also there is some thin walled loculated fluid collection adjacent to her surg ical wound favor postsurgical seroma with a small blood component or hematoma In the emergency room patient received 1 dose of Rocephin and gentamicin. Urologist has been contacted by ENT team. We are asked for infectious disease consult recommended Zosyn was started for the patient. Also she is on normal saline at 1 30 mL/h Liver enzymes trending down 01/12/2021 Patient yesterday developed low blood pressure and tachycardia with tachypnea with redrape wasn't 30s and 40s, she received 4 L of normal saline and then she was transferred to the ICU where she needed small dose of levophed. Urologist evaluated the patient urgently and she underwent cystoscopy with left ureteral stent placement. This morning she is fully awake and oriented and she feels little better. She still have some lower abdominal pain and tenderness, no maurisio urinary symptoms. She is still little hypotensive with blood pressure 85/62, breathing rate is better 15-18 and she is an 8 liters per minute oxygen. Active fever yesterday of 102.9. Labs show leukocytosis of 18 Urine culture is growing E. coli sensitive to many antibiotics and discharged to ceftriaxone 2 g daily today She's also normal saline at 130 mL/h 01/13/2021 All vitals are improving. Her blood pressure is stable off pressors. Blood pressure is 104/71. No fever for the last 48 hours. She is on 3 L oxygen. She still have some pain at the left lower abdomen which is expected. Blood culture is positive no for E. coli which most likely the source is from UTI which also going same microorganism in UC. Leukocytosis trending down to 15 K, hemoglobin slightly low at 10.8. She remains on ceftriaxone 2 g daily and normal saline at 40 mL per hour 01/14/2021 Patient improving gradually, she still have some left costovertebral angle pain and tenderness, but improving. No nausea vomiting. She still feels generally weak. She is hemodynamically stable, she is saturating 96% on 2 L oxygen via nasal cannula. She had low-grade Temperature yesterday at 99.7. WBC is trending down to 14.1. Hemoglobin is a stable she continued on normal saline at 40 mL/h and ceftriaxone Dr. Fletcher surgeon and Dr. Mireles urologist there want her to follow up in 1-2 weeks upon discharge 01/15/2021 Patient left flank and costovertebral angle pain and tenderness gradually trending down however is not resolving completely. They it is down to 7/10 most likely related related to retained stone. We'll need to follow-up with urologist as an outpatient in 1-2 weeks to repeat cystoscopy, stent and stone removal, formed and she agrees. Other than that she is hemodynamically stable. No labs today. She remains on Rocephin 2 g daily based on her positive urine or blood culture for E. coli. Patient needs to follow-up with Dr. Lin in 1-2 weeks and patient is aware 01/16/2021 Patient keep doing well. She still has left-sided abdominal pain which looked same or slightly better, slowly to improve given the fact she still have left ureteral stone that she needs to follow up as an outpatient. She had low-grade temperature of 99.7 yesterday. But actually patient was asking if she can be discharged home today but she is able to stay in the hospital for now. Her WBC is actually back to normal today at 6.6. BMP is unremarkable. Remains on ceftriaxone 2 g daily and gentle hydration. Bowel regimen is adequate for her constipation which is expected with her pain medication. Possible discharge in 24-48 hours if she keeps improving Objective - Vital Signs Vital signs: Vital Signs Temp 98.3 F 01/16/21 07:57 Pulse 71 01/16/21 07:57 Resp 17 01/16/21 07:57 BP 106/68 01/16/21 07:57 Pulse Ox 91 L 01/16/21 07:57 Intake & Output 01/15/21 01/16/21 01/16/21 18:59 06:59 18:59 Other: Voiding Method Bedside Commode Toilet # Voids 3 2 - Exam GENERAL: The patient is alert and oriented x3, not in any acute distress. Well developed, well nourished. HEENT: Pupils are round and equally reacting to light. EOMI. No scleral icterus. No conjunctival pallor. Normocephalic, atraumatic. No pharyngeal erythema. No thyromegaly. CARDIOVASCULAR: S1 and S2 present. No murmurs, rubs, or gallops. PULMONARY: Chest is clear to auscultation, no wheezing or crackles. -ABDOMEN: Soft, lower abdominal tenderness, nondistended, normoactive bowel sounds. No palpable organomegaly. MUSCULOSKELETAL: No joint swelling or deformity. EXTREMITIES: No cyanosis, clubbing, or pedal edema. NEUROLOGICAL: Gross neurological examination did not reveal any focal deficits. SKIN: No rashes. no petechiae. - Labs CBC & Chem 7: 01/16/21 10:04 01/16/21 10:04 Labs: Abnormal Lab Results - Last 24 Hours (Table) 01/16/21 Range/Units 10:04 Sodium 136 L (137-145) mmol/L C-Reactive Protein 7.7 H (<1.0) mg/dL Microbiology - Last 24 Hours (Table) 01/11/21 07:28 Blood Culture - Preliminary Blood No Growth after 120 hours 01/12/21 03:54 Blood Culture - Preliminary Blood No Growth after 96 hours Assessment and Plan Assessment: Acute urinary tract infection with left sided hydronephrosis. Secondary to E. coli Severe sepsis with septic shock, improved with fever and tachycardia secondary to above mild to severe left-sided hydronephrosis secondary to 5-6 mm kidney stone on the proximal ureter . Status post cystoscopy and stent placement in the left ureter on 01/11 recent history of incisional hernia repair Possible postsurgical hematoma versus seroma history of gastric sleeve surgery complicated with incisional hernia Morbid obesity with BMI of 44.4 Plan: this is a pleasant 45 years old female who presents with UTI, pyelonephritis and left hydronephrosis. Continue with ceftriaxone and normal saline. Infectious Disease consult Urology team consult Labs and medication were reviewed.. Continue same treatment. Continue with symptomatic treatment. Resume home medication. Monitor lytes and vitals. DVT and GI prophylaxis. Further recommendations depends on the clinical course of the patient DVT prophylaxis: Subcutaneous heparin GI Prophylaxis: Pepcid
[2021-01-16 20:06] VITALS: RESP 16
[2021-01-17] MEDS: ALPRAZolam 0.25 MG TAB PO PRN
[2021-01-17] MEDS: HYDROcodone/APAP 7.5-325MG 1 EACH TAB PO PRN (00:01)
[2021-01-17] MEDS: FAMOTIDINE 20 MG/2 ML VIAL IV SCH (07:46)
[2021-01-17] MEDS: HEPARIN SODIUM,PORCINE/PF 5,000 UNIT/0.5 ML SYRINGE SQ SCH (07:46)
[2021-01-17] MEDS: VENLAFAXINE HCL ER 75 MG CAP PO SCH (07:46)
[2021-01-17] MEDS: OXYBUTYNIN 10 MG TAB.ER.24 PO SCH (07:46)
[2021-01-17] MEDS: THIAMINE 100 MG/ML 2 ML VIAL IVP SCH (07:47)
[2021-01-17 12:30] LABS: HCT 38.5 % (37.2-46.3); HGB 12.4 g/dL (12.0-15.0); MCH 29.2 pg (27.0-32.0); MCHC 32.2 g/dL (32.0-37.0); MCV 90.6 fL (80.0-97.0); Mean Platelet Volume 10.3 fL (9.5-12.2); Platelet Count 281 X 10*3/uL (140-440); RBC 4.25 X 10*6/uL (4.10-5.20); RDW 12.9 % (11.5-14.5); WBC 7.05 X 10*3/uL (4.50-10.00)
[2021-01-17 13:07] LABS: Basophils # (M) 0.14 X 10*3/uL (0.00-0.10); Eosinophils # (M) 0.35 X 10*3/uL (0.04-0.35); Lymphocytes # (M) 1.55 X 10*3/uL (0.90-5.00); Metamyelocytes % 2 % (0-0); Monocytes # (M) 0.63 X 10*3/uL (0.20-1.00); Myelocytes % 1 % (0-0); Neutrophils # (M) 4.16 X 10*3/uL (2.00-8.90); Neutrophils % (M) 59 %
[2021-01-17 14:40] LABS: African American GFR (CKD) 126.7 (60.0-200.0); Anion Gap 13.7 mmol/L (4.00-12.00); BUN/Creat Ratio 18.33 Ratio (12.00-20.00); C Reactive Protein 8.1 mg/dL (0.0-0.8); Calcium 8.5 mg/dL (8.7-10.3); Carbon Dioxide 22.3 mmol/L (21.6-31.8); Non-African American GFR(CKD) 109.3 (60.0-200.0)
[2021-01-17 14:41] VITALS: BMI 44.4
[2021-01-17 15:58] VITALS: BP 118/85; PULSE 75; TEMP 98.1
--- NOTE | 2021-01-17 17:17 | PN ---
PROGRESS NOTE DATE OF SERVICE: 01/17/2021 REASON FOR FOLLOWUP: E coli urinary tract infection with bacteremia secondary to complicated INTERVAL HISTORY: The patient is afebrile. The patient is feeling better, breathing comfortably. Denies having any chest pain, shortness of breath or cough. No abdominal pain or diarrhea. PHYSICAL EXAMINATION: Blood pressure 180/85 with a pulse of 75, temperature 98.1. She is 100% on room air. GENERAL DESCRIPTION: General description is a middle-aged female up in the bed in no distress. RESPIRATORY SYSTEM: Unlabored breathing. Clear to auscultation anteriorly. HEART: S1, S2. Regular rate and rhythm. ABDOMEN: Soft. No tenderness. LABS: Hemoglobin is 12.4, white count 7.05, creatinine 0.32. DIAGNOSTIC IMPRESSION AND PLAN: Patient with an Escherichia coli urinary tract infection uncomplicated pyelonephritis, status post ureteral stent placement. Plan at this time is to finish therapy with oral Cipro for 10 days with close outpatient followup. Continue supportive care. MMODL / IJN: [id number] /
--- NOTE | 2021-01-17 20:51 | P.DS ---
Providers Date of admission: 01/11/21 09:43 Attending physician: Lj Guzman MD Consults: 01/11/21 09:44 Consult Physician Routine Consulting Provider: Reza Emmanuel Consult Reason/Comments: septic stone Do you want consulting provider notified?: Already Contacted Consult Physician Routine Consulting Provider: Cali Del Valle Consult Reason/Comments: antibiotic therapy Do you want consulting provider notified?: Yes 01/11/21 09:46 Consult Physician Routine Consulting Provider: Melissa Fletcher Consult Reason/Comments: post surgical fluid collection, fever Do you want consulting provider notified?: Yes 01/11/21 14:42 Consult Physician Urgent Consulting Provider: Yesenia Rodriguez Consult Reason/Comments: possible septic shock Do you want consulting provider notified?: Yes [facility]: Diagnoses: Acute urinary tract infection with left sided hydronephrosis. Secondary to E. coli Severe sepsis with septic shock, improved with fever and tachycardia secondary to above mild to severe left-sided hydronephrosis secondary to 5-6 mm kidney stone on the proximal ureter . Status post cystoscopy and stent placement in the left ureter on 01/11 recent history of incisional hernia repair Possible postsurgical hematoma versus seroma history of gastric sleeve surgery complicated with incisional hernia Morbid obesity with BMI of 44.4 Hospital course: This is a pleasant 45 years old female with past medical history of hysterectomy, kidney stone and she follows up with Dr. Mireles many years ago, history of gastric sleeve surgery complicated by incisional hernia status post hernia repair done by Dr. fletcher last Sunday. Presents this time because of left abdominal pain with fever that started when day earlier CT of the abdomen and pelvis with contrast: Moderate to severe left-sided hydronephrosis with delayed excretion secondary to 5-6 mm proximal left ureteral calculus On admission patient became hypotensive quickly within 1 and she needs to be transferred to the ICU where she was monitored and needed short time of pressors. Her blood pressure stabilized with IV fluids and antibiotics. Urologist did urgent left side ureteral stent placement on 01/11 with cystoscopy. Patient has positive urine blood culture with E. coli responded to antibiotic according to sensitivity to ceftriaxone 2 g daily which is as per to oral Cipro upon discharge for 10 days per ID team recommendation On the day of discharge her pain significantly controlled, her vitals were stable, she denies any other symptoms. No chest pain or dyspnea or nausea vomiting or diarrhea. She was constipated from pain medication and laxative provided for her upon discharge QTC was checked upon discharge and it was normal at 452 with EKG showing normal sinus rhythm at 69 heart rate. She was cleared for discharge by all consultants including urologist, ID team and rn oncology research Patient was instructed to be discharged home today and follow-up as an outpatient. Problems and management plan were discussed with the patient and he verbalized understanding and acceptance Patient was found stable and can be discharged home however he needs follow-up as an outpatient. Patient was instructed to follow up with PCP Dr. Baca within one week and patient agrees with the appointments made for her on 01/21. Also patient was instructed to follow up with urologist Dr. Mireles in 2 weeks and she agrees with the appointments made for her on 01/19 as stated she will follow up for repeat cystoscopy and stent and stone removal Patient was instructed to follow up with Dr. Del Valle in one week and she agrees Physical exam Gen: patient is a AAOx3, no distress CVS: S1-S2, RRR, no murmur Lungs: B/L CTA, no wheezing Abdomen: soft, no distention, no tenderness, positive bowel sounds Extremity: no leg edema or induration Time spent more than 35 minutes Plan - Discharge Summary New Discharge Prescriptions: New Ciprofloxacin HCl [Cipro] 500 mg PO Q12HR 10 Days #20 tab Oxybutynin ER [Ditropan Xl] 10 mg PO DAILY #30 tablet Docusate [Colace] 100 mg PO BID PRN 10 Days #20 cap PRN Reason: Constipation HYDROcodone/APAP 5-325MG [[place] 5-325] 1 tab PO Q8HR PRN 3 Days #12 tab PRN Reason: Severe Pain Thiamine [Vitamin B-1] 100 mg PO DAILY #30 tablet Continue metFORMIN HCL ER [Glucophage XR] 1,000 mg PO DAILY Venlafaxine HCl ER [Effexor XR] 225 mg PO DAILY Discontinued hydroCHLOROthiazide [Hydrodiuril] 25 mg PO DAILY Naproxen 500 mg PO BID Discharge Medication List Venlafaxine HCl ER [Effexor XR] 225 mg PO DAILY 01/11/21 [History] metFORMIN HCL ER [Glucophage XR] 1,000 mg PO DAILY 01/11/21 [History] Ciprofloxacin HCl [Cipro] 500 mg PO Q12HR 10 Days #20 tab 01/17/21 [Rx] Docusate [Colace] 100 mg PO BID PRN 10 Days #20 cap 01/17/21 [Rx] HYDROcodone/APAP 5-325MG [[place] 5-325] 1 tab PO Q8HR PRN 3 Days #12 tab 01/17/21 [Rx] Oxybutynin ER [Ditropan Xl] 10 mg PO DAILY #30 tablet 01/17/21 [Rx] Thiamine [Vitamin B-1] 100 mg PO DAILY #30 tablet 01/17/21 [Rx] Follow up Appointment(s)/Referral(s): Chon Baca DO [Primary Care Provider] - 01/21/21 9:20 am (Appointment will be with Kylah @ [facility].) Cali Del Valle MD [STAFF PHYSICIAN] - 1 Week Ravi Weller MD [STAFF PHYSICIAN] - 01/19/21 1:40 pm Patient Instructions/Handouts: Kidney Stones (DC) Discharge Disposition: HOME SELF-CARE
== END 2021-01-17 15:57 | disposition home or self-care (01) | DRG 853 ==
LOC: EC 06:48 → 6PED 09:43 → 2SICU 15:53 → 4SSUR 01-13 16:36
PROVIDERS: ADMIT Internal Medicine; ATTEND Internal Medicine
PROC: 3E033XZ Introduction of Vasopressor into Peripheral Vein, Percutaneous Approach (ICD-10-PCS; principal; 2021-01-11 07:30)
PROC: 0T778DZ Dilation of Left Ureter with Intraluminal Device, Via Natural or Artificial Opening Endoscopic (ICD-10-PCS; principal; 2021-01-11 07:30)
PROC: 0H97XZX Drainage of Abdomen Skin, External Approach, Diagnostic (ICD-10-PCS; 2021-01-12 13:35)
DX: A41.51 Sepsis due to Escherichia coli [E. coli] (principal); R65.21 Severe sepsis with septic shock; E87.2 Acidosis; N13.6 Pyonephrosis; Z68.41 Body mass index [BMI] 40.0-44.9, adult; L76.34 Postprocedural seroma of skin and subcutaneous tissue following other procedure; E66.01 Morbid (severe) obesity due to excess calories; F32.9 Major depressive disorder, single episode, unspecified; K59.00 Constipation, unspecified; Z87.442 Personal history of urinary calculi; Z79.84 Long term (current) use of oral hypoglycemic drugs; Z79.899 Other long term (current) drug therapy; Z82.49 Family history of ischemic heart disease and other diseases of the circulatory system; Z83.3 Family history of diabetes mellitus; Z88.1 Allergy status to other antibiotic agents; Z90.710 Acquired absence of both cervix and uterus; Z20.822 Contact with and (suspected) exposure to COVID-19; Z98.84 Bariatric surgery status; Y83.8 Other surgical procedures as the cause of abnormal reaction of the patient, or of later complication, without mention of misadventure at the time of the procedure
CPT/HCPCS: 36410; 36415; 74177; 76937; 80048; 80053; 81001; 83605; 83735; 85025; 85027; 86140; 87040; 87070; 87075; 87077; 87086; 87186; 87205; 87635; 93005; 94760; 96361; 96374; 96375; 99285

== ENCOUNTER 2021-01-24 08:06 | Day surgery (SDC) | payer BC ==
[~2021-01-24 08:06] MED LIST: DEXAMETHASONE SOD PHOSPHATE 4 MG/ML 1 ML VIAL IV ONE; HYDROmorphone 0.5 MG/0.5 ML SYRINGE IVP PRN; LACTATED RINGERS 1,000 ML IV SCH; MIDAZOLAM 2 MG/2 ML VIAL IV PRN; ONDANSETRON 4 MG/2 ML VIAL IVP ONE; SCOPOLAMINE 1.5MG/72HR PATCH TRANSDERM ONE
--- NOTE | 2021-01-24 08:27 | XR ---
EXAMINATION TYPE: XR KUB DATE OF EXAM: 01/24/2021 Comparison: 10/12/2019, CT 01/11/2021 Clinical History: 45-year-old female kidney stones Findings: Left-sided ureteral stent. Mild stool burden. Nonobstructive bowel gas pattern. A couple subtle densi ties along the proximal to middle third stent measuring 5 mm and 4 mm. Bowel content largely obscured the renal shadows. Impression: Left-sided ureteral stent. A couple subtle densities measuring 5 mm and 4 mm along the proximal third to middle third stent could represent passing calculi.
--- NOTE | 2021-01-24 09:09 | P.HPIHPCON ---
History of Present Illness H&P Date: 01/24/21 Chief Complaint: Left ureteral stone This is a 45-year-old female with history of recurrent kidney stones. She presented with sepsis on January 11, underwent stent placement at that time. She presents today for definitive stone management. Discussed with her the option of left ureteroscopy. Discussed with ureteral stone, and her renal stones. Discussed with her the risk of surgery which includes but not limited to bleeding, infection, injury to the ureter. She understood all the risk and agreed to proceed Consent for Procedure: I have explained the operation/procedure to the patient, including the risks, benefits, side effects, alternative therapies (including not receiving the proposed treatment or service), the likelihood of the patient achieving his/her goals, and potential recuperation problems for the procedure/sedation/analgesia, as well as any blood products, if indicated. I also explained to the patient the risks, benefits and side effects of the alternatives, as well as the risks related to not receiving the proposed procedure, care, treatment, or services. Past Medical History Past Medical History: Diabetes Mellitus, Hypertension Additional Past Medical History / Comment(s): Kidney stones. sepsis r/t kidney stones UTI inpt 01/11-01/17/21. History of Any Multi-Drug Resistant Organisms: None Reported Past Surgical History: Bariatric Surgery, Hernia Repair, Hysterectomy, Orthopedic Surgery Additional Past Surgical History / Comment(s): Gastric sleeve, trigger finger, carpal tunnel, lithotripsy, Hernia Past Anesthesia/Blood Transfusion Reactions: Previous Problems w/ Anesthesia Additional Past Anesthesia/Blood Transfusion Reaction / Comment(s): PT STATES "I HAVE WOKEN UP BEFORE DURING SURGERY" Smoking Status: Never smoker - Past Family History Mother Family Medical History: Diabetes Mellitus, Hypertension Father Family Medical History: Hypertension Medications and Allergies Home Medications Medication Instructions Recorded Confirmed Type Venlafaxine HCl ER [Effexor XR] 225 mg PO DAILY 01/11/21 01/24/21 History metFORMIN HCL ER [Glucophage XR] 500 mg PO DAILY 01/11/21 01/24/21 History Ciprofloxacin HCl [Cipro] 500 mg PO Q12HR 10 Days #20 tab 01/17/21 01/24/21 Rx Docusate [Colace] 100 mg PO BID PRN 10 Days #20 cap 01/17/21 01/24/21 Rx HYDROcodone/APAP 5-325MG [[place] 1 tab PO Q8HR PRN 3 Days #12 tab 01/17/21 01/20/21 Rx 5-325] Oxybutynin ER [Ditropan Xl] 10 mg PO DAILY #30 tablet 01/17/21 01/24/21 Rx Thiamine [Vitamin B-1] 100 mg PO DAILY #30 tablet 01/17/21 01/24/21 Rx hydroCHLOROthiazide [Hydrodiuril] 25 mg PO DAILY 01/20/21 01/24/21 History Allergies Allergy/AdvReac Type Severity Reaction Status Date / Time sulfamethoxazole AdvReac Nausea & Verified 01/24/21 09:02 [From Bactrim] Vomiting trimethoprim [From Bactrim] AdvReac Nausea & Verified 01/24/21 09:02 Vomiting TAPE AdvReac Rash/Hives Uncoded 01/24/21 09:02 Surgical - Exam Vital Signs Temp Pulse Resp BP Pulse Ox 97.1 F L 80 16 142/84 95 01/24/21 09:01 01/24/21 09:01 01/24/21 09:01 01/24/21 09:01 01/24/21 09:01 - General well developed, well nourished, no distress, no pain - Eyes PERRL, normal ocular movement - ENT normal nares, normal mucosa - Respiratory normal expansion, normal respiratory effort - Abdomen Abdomen: soft, non tender Assessment and Plan Assessment: Or for left-sided ureteroscopy, with holmium laser lithotripsy, stone basketing and stent removal
[2021-01-24 09:20] LABS: Glucose,Whole Blood 108 mg/dL (75-99)
[2021-01-24] MEDS ORDERED: MIDAZOLAM 2 MG/2 ML VIAL IV ONE (09:35)
[2021-01-24] MEDS ORDERED: LIDOCAINE 1% INJ 10MG/ML (20 ML MDV) ONE (10:16)
[2021-01-24] MEDS ORDERED: fentaNYL (PF) 50 MCG/ML 2 ML AMP ONE (10:16)
[2021-01-24] MEDS ORDERED: KETOROLAC 15 MG/ML 1 ML VIAL ONE (10:16)
[2021-01-24] MEDS ORDERED: MIDAZOLAM 2 MG/2 ML VIAL ONE (10:16)
[2021-01-24] MEDS ORDERED: PROPOFOL 10 MG/ML 20 ML VIAL IV ONE (10:16)
[2021-01-24 11:19] VITALS: TEMP 97.2
--- NOTE | 2021-01-24 11:19 | P.OP ---
Date of Procedure: 01/24/21 Preoperative Diagnosis: Left ureteral, renal stones Postoperative Diagnosis: Same Procedure(s) Performed: Left ureteroscopy, holmium laser lithotripsy, stone basketing and stent removal Implants: None Anesthesia: LEN Surgeon: Reza Emmanuel Estimated Blood Loss (ml): 1 Pathology: other (Left ureteral, renal stone) Condition: stable Disposition: PACU Indications for Procedure: This is a 45-year-old female with history of recurrent kidney stones. She presented with sepsis on January 11, underwent stent placement at that time. She presents today for definitive stone management. Discussed with her the option of left ureteroscopy. Discussed with Mr. ureteral stone, and her renal stones. Discussed with her the risk of surgery which includes but not limited to bleeding, infection, injury to the ureter. She understood all the risk and agreed to proceed Operative Findings: Left distal ureteral stones, more than 10 stones were removed from the ureter. Additional stones were also seen in the kidney Description of Procedure: She was brought to the operating room, general anesthesia was induced. She was prepped and draped in sterile fashion and placed in dorsal lithotomy position. Cystoscopy fitted with a 21-[place] sheath was inserted per urethra, cystoscopy was performed which showed no abnormality within the bladder the stent was visualized protruding from the left ureteral orifice, was grasped and removed. Next a semirigid ureteroscope was advanced through the urethra and up left ureteral orifice, a large stone was encountered in the distal ureter. Using the holmium laser the stone was fragmented into small fragments. Sizable fragments were removed using the stone basket. At this time the ureteroscope was advanced further, and additional stones were encountered along the course of the ureter. Approximately 10 stones were removed from the ureter, all stones were small enough to be grasped with a stone basket. At this time the ureteroscope was advanced all the way up to the proximal ureter which showed no additional stones or injury to the kidney. Pullback ureteroscopy was performed which showed no stones or injury to the ureter. The ureteroscope was withdrawn and a sensor wire was advanced through. Next an 1113 [place] access sheath was passed over the wire into the proximal ureter. Flexible ureteroscope was advanced through the access sheath into the kidney. Additional stones were encountered in the lower pole of the kidney. Small stones were grasped and removed. There was a stone that was large that was broken up using the holmium laser. Fragments were removed and sent to pathology. Repeat renoscopy showed no sizable fragments or injury to the kidney. Pullback ureteroscopy was performed which showed no injury to the ureter or ureteral fragments. The bladder was emptied at the end of the case. Patient tolerated the procedure well was taken to PACU in stable condition
--- NOTE | 2021-01-24 11:38 | FL ---
Fluoroscopy History: LEFT URETERAL CALC Radiology provided fluoroscopic time for retrograde pyelography.
[2021-01-24 12:26] VITALS: RESP 16
[2021-01-24 12:32] VITALS: BP 138/78; PULSE 89
== END 2021-01-24 12:55 | disposition home or self-care (01) ==
LOC: OR 08:06
PROVIDERS: ATTEND Urology
DX: N20.0 Calculus of kidney (principal); Z87.442 Personal history of urinary calculi; I10 Essential (primary) hypertension; E11.9 Type 2 diabetes mellitus without complications; F32.9 Major depressive disorder, single episode, unspecified; Z79.84 Long term (current) use of oral hypoglycemic drugs; Z79.899 Other long term (current) drug therapy
CPT/HCPCS: 52353; 82365; 74018; C1769; J2250; J1100; J0690; J2405; J2001; J3010; J1885; J2704

== ENCOUNTER 2023-05-11 19:40 | Emergency (ER) | payer BC ==
--- NOTE | 2023-05-11 21:01 | ED ---
General Adult HPI - General Source: patient, RN notes reviewed <Cathy Post - Last Filed: 05/11/23 20:59> <Clementina Yusuf - Last Filed: 05/12/23 04:08> - General Stated complaint: Cough,Fast heart rate,sob Time Seen by Provider: 05/11/23 20:59 - History of Present Illness Initial comments: 47 year old female presents to the emergency department for evaluation of cough x2 weeks and palpitations that started yesterday. She states that she does have some shortness of breath worse when she feels the palpitations. Denies known aggravating or alleviating factors of palpitations. She denies recent fever. (Cathy Post) 39-year-old female presenting with chief complaint of cough and headache. Patient states that she has had a cough for the last 2 weeks. She states that she does have some shortness of breath associated with the cough. No fevers, chills, nausea, vomiting, chest pain. She also admits to headache. Headache is a bandlike sensation that feels a tightening her on the head. She states that when she was coughing a "felt like something exploded inside my head". She rates the pain an 8 out of 10 at this time. States that the pain has mildly improved since the initial onset. Pain was sudden in onset. No vision or hearing changes. No dizziness. No neck pain. (Clementina Yusuf) - Related Data Home Medications Medication Instructions Recorded Confirmed Venlafaxine HCl ER [Effexor XR] 225 mg PO DAILY 01/11/21 01/24/21 metFORMIN HCL ER [Glucophage XR] 500 mg PO DAILY 01/11/21 01/24/21 hydroCHLOROthiazide [Hydrodiuril] 25 mg PO DAILY 01/20/21 01/24/21 Previous Rx's Medication Instructions Recorded Ciprofloxacin HCl [Cipro] 500 mg PO Q12HR 10 Days #20 tab 01/17/21 Docusate [Colace] 100 mg PO BID PRN 10 Days #20 cap 01/17/21 HYDROcodone/APAP 5-325MG [[place] 1 tab PO Q8HR PRN 3 Days #12 tab 01/17/21 5-325] Oxybutynin ER [Ditropan XL] 10 mg PO DAILY #30 tablet 01/17/21 Thiamine [Vitamin B-1] 100 mg PO DAILY #30 tablet 01/17/21 Ketorolac [Toradol] 10 mg PO Q6HR PRN #15 tab 01/24/21 Tamsulosin [Flomax] 0.4 mg PO DAILY #7 cap 01/24/21 Azithromycin [Zithromax Z Pack] 1 tab PO DIRECTED #6 tab 05/12/23 Allergies Allergy/AdvReac Type Severity Reaction Status Date / Time sulfamethoxazole AdvReac Nausea & Verified 01/24/21 09:02 [From Bactrim] Vomiting trimethoprim [From Bactrim] AdvReac Nausea & Verified 01/24/21 09:02 Vomiting TAPE AdvReac Rash/Hives Uncoded 01/24/21 09:02 Review of Systems ROS Other: All systems not noted in ROS Statement are negative. <Cathy Post - Last Filed: 05/11/23 20:59> ROS Other: All systems not noted in ROS Statement are negative. <Clementina Yusuf - Last Filed: 05/12/23 04:08> ROS Statement: Those systems with pertinent positive or pertinent negative responses have been documented in the HPI. Past Medical History Past Medical History: Diabetes Mellitus, Hypertension Additional Past Medical History / Comment(s): Kidney stones. sepsis r/t kidney stones UTI inpt 01/11-01/17/21. History of Any Multi-Drug Resistant Organisms: None Reported Past Surgical History: Bariatric Surgery, Hernia Repair, Hysterectomy, Orthopedic Surgery Additional Past Surgical History / Comment(s): Gastric sleeve, trigger finger, carpal tunnel, lithotripsy, Hernia Past Anesthesia/Blood Transfusion Reactions: Previous Problems w/ Anesthesia Additional Past Anesthesia/Blood Transfusion Reaction / Comment(s): PT STATES "I HAVE WOKEN UP BEFORE DURING SURGERY" Smoking Status: Never smoker - Past Family History Mother Family Medical History: Diabetes Mellitus, Hypertension Father Family Medical History: Hypertension <Cathy Post - Last Filed: 05/11/23 20:59> General Exam <Cathy Post - Last Filed: 05/11/23 20:59> Limitations: no limitations General appearance: alert, in no apparent distress Head exam: Present: atraumatic, normocephalic Eye exam: Present: normal appearance, PERRL, EOMI Pupils: Present: normal accommodation Neck exam: Present: normal inspection, full ROM Respiratory exam: Present: normal lung sounds bilaterally. Absent: respiratory distress, wheezes, rales, rhonchi, stridor Cardiovascular Exam: Present: regular rate, normal rhythm, normal heart sounds. Absent: systolic murmur, diastolic murmur, rubs, gallop, clicks Neurological exam: Present: alert, oriented X3 Expanded Patient oriented to: Present: person, place, time Speech: Present: fluid speech Cranial nerves: EOM's Intact: Normal Cerebellar function: Finger to Nose: Normal, Heel to [place]: Normal Motor strength exam: RUE: 5, LUE: 5, RLE: 5, LLE: 5 Eye Response: (4) open spontaneously Motor Response: (6) obeys commands Verbal Response: (5) oriented [place] Total: 15 Psychiatric exam: Present: normal affect, normal mood Skin exam: Present: warm, dry <Clementina Yusuf - Last Filed: 05/12/23 04:08> - General Exam Comments Initial Comments: Visual Physical Exam Vital signs reviewed General: Well-appearing, nontoxic, no acute distress. Head: Normocephalic, atraumatic Eyes: PERRLA, EOMI ENT: Airway patent Chest: Nonlabored breathing Skin: No visual rash, normal skin tone Neuro: Alert and oriented 3 Musculoskeletal: No gross abnormalities (Cathy Post) Course Vital Signs 05/11/23 05/11/23 05/12/23 21:34 23:10 01:18 Temperature 98.2 F Pulse Rate 98 83 Respiratory 16 16 Rate Blood Pressure 178/85 156/96 O2 Sat by Pulse 97 Oximetry Medical Decision Making <Cathy Post - Last Filed: 05/11/23 20:59> <Clementina Yusuf - Last Filed: 05/12/23 04:08> - Medical Decision Making Quick note preformed by Cathy Post PA-C (Cathy Post) Was pt. sent in by a medical professional or institution (JOSEF Red, RUG DRY ROOM ATTENDANT, urgent care, hospital, or alf...) When possible be specific @ -No Did you speak to anyone other than the patient for history (EMS, parent, family, police, friend...)? What history was obtained from this source @ -No Did you review nursing and triage notes (agree or disagree)? Why? @ -I reviewed and agree with nursing and triage notes Were old charts reviewed (outside hosp., previous admission, EMS record, old EKG, old radiological studies, urgent care reports/EKG's, alf records)? Report findings @ -No old charts were reviewed Differential Diagnosis (chest pain, altered mental status, abdominal pain women, abdominal pain men, vaginal bleeding, weakness, fever, dyspnea, syncope, headache, dizziness, GI bleed, back pain, seizure, CVA, palpatations, mental health, musculoskeletal)? @ -MDM Differential Headache: Migraine, tension, cluster, carbon monoxide, central venous thrombosis, pension karma temporal arteritis, acute closure glaucoma, intercranial hemorrhage, mastoiditis, sinusitis, head injury this is not meant to be an all-inclusive list. EKG interpreted by me (3pts min.). @ -As above X-rays interpreted by me (1pt min.). @ -Slightly prominent interstitial markings on chest x-ray CT interpreted by me (1pt min.). @ -CT of the brain shows no acute intracranial process U/S interpreted by me (1pt. min.). @ -None done What testing was considered but not performed or refused? (CT, X-rays, U/S, labs)? Why? @ -None What meds were considered but not given or refused? Why? @ -None Did you discuss the management of the patient with other professionals (professionals i.e. , PA, RUG DRY ROOM ATTENDANT, lab, RT, psych nurse, high school social studies teacher, leisure studies professor, teacher, quality officer, pillowcase folder)? Give summary @ -No Was smoking cessation discussed for >3mins.? @ -No Was critical care preformed (if so, how long)? @ -No Were there social determinants of health that impacted care today? How? (Homelessness, low income, unemployed, alcoholism, drug addiction, transportation, low edu. Level, literacy, decrease access to med. care, nursing home, rehab)? @ -No Was there de-escalation of care discussed even if they declined (Discuss DNR or withdrawal of care, Hospice)? DNR status @ -No What co-morbidities impacted this encounter? (DM, HTN, Smoking, COPD, CAD, Cancer, CVA, ARF, Chemo, Hep., AIDS, mental health diagnosis, sleep apnea, morbid obesity)? @ -None Was patient admitted / discharged? Hospital course, mention meds given and route, prescriptions, significant lab abnormalities, going to OR and other perti nent info. @ -47-year-old female presenting with chief complaint of cough and headache. Patient has had this cough for the last 2 weeks, today while she was coughing she had a sudden onset severe headache. History and physical exam are conducted, no focal neurological deficits and heart and lungs are clear to auscultation. She is negative for influenza, RSV, and Covid. Negative CT of the brain and chest x-ray shows prominent interstitial markings. Likely bronchitis, given the prominent interstitial markings we will treat with azithromycin. Patient is agreeable to this plan. Follow-up with PCP. Report back to ER with any new or worsening symptoms. Discussed return parameters and answered all questions. Patient conveyed verbal understanding and agreed to the plan. I discussed this case in detail with my attending Dr. Tafoya Undiagnosed new problem with uncertain prognosis? @ -No Drug Therapy requiring intensive monitoring for toxicity (Heparin, Nitro, Insulin, Cardizem)? @ -No Were any procedures done? @ -No Diagnosis/symptom? @ -Bronchitis Acute, or Chronic, or Acute on Chronic? @ -Acute Uncomplicated (without systemic symptoms) or Complicated (systemic symptoms)? @ Uncomplicated Side effects of treatment? @ -No Exacerbation, Progression, or Severe Exacerbation? @ -No Poses a threat to life or bodily function? How? (Chest pain, [place], [place], pneumonia, PE, COPD, DKA, ARF, appy, cholecystitis, CVA, Diverticulitis, Homicidal, Suicidal, threat to staff... and all critical care pts) @ -Low likelihood (Clementina Yusuf) - Lab Data Lab Results 05/11/23 Range/Units 21:37 Influenza Type A (PCR) Not Detected (Not Detectd) Influenza Type B (PCR) Not Detected (Not Detectd) RSV (PCR) Not Detected (Not Detectd) SARS-CoV-2 (PCR) Not Detected (Not Detectd) Disposition <Cathy Post - Last Filed: 05/11/23 20:59> Is patient prescribed a controlled substance at d/c from ED?: No Time of Disposition: 01:20 <Clementina Yusuf - Last Filed: 05/12/23 04:08> Clinical Impression: Bronchitis Disposition: HOME SELF-CARE Condition: Good Instructions (If sedation given, give patient instructions): Acute Bronchitis (ED) Additional Instructions: follow-up with PCP. Report back to ER with any new or worsening symptoms. Prescriptions: Azithromycin [Zithromax Z Pack] 1 tab PO DIRECTED #6 tab Referrals: None,Stated [Primary Care Provider] - 1-2 days
[2023-05-11 21:45] VITALS: RESP 16; TEMP 98.2
[2023-05-11] MEDS ORDERED: SODIUM CHLORIDE 0.9% 1,000 ML IV STA (23:24)
[2023-05-11] MEDS ORDERED: ACETAMINOPHEN TAB 500 MG TAB PO STA (23:24)
--- NOTE | 2023-05-12 00:29 | XR ---
EXAM: XR Chest, 2 Views CLINICAL HISTORY: ITS.REASON XR Reason: cough TECHNIQUE: Frontal and lateral views of the chest. COMPARISON: No relevant prior studies available. FINDINGS: Lungs: No consolidation or mass. Slightly prominent interstitial markings. Pleural space: No effusion. Heart: Mild cardiomegaly. Bones/joints: No acute findings. IMPRESSION: Slightly prominent interstitial markings.
--- NOTE | 2023-05-12 00:45 | CT ---
EXAM: CT Head Without Intravenous Contrast CLINICAL HISTORY: ITS.REASON CT Reason: sudden onset headache TECHNIQUE: Axial computed tomography images of the head/brain without intravenous contrast. CTDI is 49.2 mGy and DLP is 1196.4 mGy-cm. This CT exam was performed using one or more of the following dose reduction techniques: automated exposure control, adjustment of the mA and/or kV according to patient size, and/or use of iterative reconstruction technique. COMPARISON: No relevant prior studies available. FINDINGS: Brain: No hemorrhage or mass effect. Ventricles: No hydrocephalus. Bones/joints: Unremarkable. Soft tissues: Benign calcified scalp lesions. Sinuses: No air fluid level. Mastoid air cells: Clear. IMPRESSION: No acute hemorrhage, hydrocephalus, or mass effect.
[2023-05-12 01:43] VITALS: BP 156/96; PULSE 83
== END 2023-05-12 01:31 | disposition home or self-care (01) ==
LOC: EC 19:40
DX: J40 Bronchitis, not specified as acute or chronic (principal); E11.9 Type 2 diabetes mellitus without complications; I10 Essential (primary) hypertension; Z79.84 Long term (current) use of oral hypoglycemic drugs; Z79.899 Other long term (current) drug therapy; Z88.2 Allergy status to sulfonamides; Z88.8 Allergy status to other drugs, medicaments and biological substances; Z20.822 Contact with and (suspected) exposure to COVID-19
CPT/HCPCS: 70450; 71046; 87636; 96360; 99285